=== PATIENT | female | born 1945 | race Caucasian/White ===

== ENCOUNTER 2019-06-27 13:24 | Inpatient (IN) | payer BC ==
[2019-06-27] VITALS (239 sets, daily range): BP systolic 161–167; BP diastolic 105–117; PULSE 63–75; TEMP 97.3–98.1; O2SAT 82–100
[~2019-06-27] VITALS: Ht 162.6 cm; Wt 103.8 kg
[~2019-06-27 13:24] MED LIST: ASPIRIN 32325 MG/TAB PO; CALCIUM 600 + V1 TA1 PO; EPA/GLA1 SGL PO; FISH OIL CONCEN1 SGL PO; LOFIBRA200 MG PO; MELATONIN1 M1; SINGULAIR 110 MG/TAB PO; TENORMIN100 MG PO; ULTRAM 50MG TAB50 MG PO; Z-BEC1 TAB PO
[2019-06-27 13:53] LABS: BASO % 0.2 % (0.0-2.0); EOS # 0.1 (0.0-0.7); EOS % 0.5 % (0-4.0); GRAN # 7.8 (1.4-6.5); GRAN % 85.5 % (42.2-75.2); HEMATOCRIT 47.3 % (37.0-47.0); HEMOGLOBIN 13.9 g/dl (12.5-16.0); LYMPH # 0.6 (1.2-3.4); LYMPH % 6.8 % (20.0-51.0); MEAN CELL VOLUME 97 fl (80.0-100.0); MEAN CORPUSCULAR HEMOGLOBIN 29 pg (27.0-31.0); MEAN CORPUSCULAR HGB CONC 29 g/dl (33.0-37.0); MONO # 0.6 (0.1-0.6); MONO % 6.3 % (1.7-9.3); PLATELET COUNT 337 K/mm3 (130-400); RED BLOOD COUNT 4.87 M/mm3 (4.10-5.30); REDCELL DISTRIBUTION WIDTH-CV 15.4 % (11.5-14.5)
[2019-06-27] MEDS ORDERED: CARDIZEM CD 30300 MG PO (13:57)
[2019-06-27] MEDS ORDERED: FERROUSAL325 MG PO (13:58)
[2019-06-27] MEDS ORDERED: GLUCOSAMINE & C1 TAB PO (13:59)
[2019-06-27] MEDS ORDERED: XARELTO20 MG PO (14:01)
[2019-06-27] MEDS ORDERED: GLUCOPHAGE500 MG/TAB PO (14:02)
[2019-06-27 14:06] LABS: ALANINE AMINOTRANSFERASE 33 U/L (9-52); ALBUMIN 4.3 gm/dL (3.5-5.0); ALKALINE PHOSPHATASE 62 U/L (50-136); ANION GAP 9 mmol/L (7-16); AST,SGOT 36 U/L (15-37); BILIRUBIN,TOTAL 0.8 mg/dL (0.0-1.0); BLOOD UREA NITROGEN 31 mg/dL (7-17); CARBON DIOXIDE 35 mmol/L (22-30); CHLORIDE 101 mmol/L (98-107); CREATINE KINASE 37 U/L (30-135); CREATININE, serum 0.57 (0.52-1.25); GLUCOSE 120 mg/dL (74-106); POTASSIUM 3.5 mmol/L (3.4-5.0); SODIUM 145 mmol/L (137-145); TOTAL PROTEIN 7.2 gm/dL (6.4-8.2)
[2019-06-27 14:22] LABS: TROPONIN-I < 0.012 ng/mL (0.000-0.035)
[2019-06-27 16:47] LABS: ARTERIAL BLD GAS O2 SATURATION 91.3 % (92-100); ARTERIAL BLD GAS TCO2 CT 38.3; ARTERIAL BLOOD GAS BASE EXCESS 8.2 (-2-2); ARTERIAL BLOOD GAS HCO3 36.3 meq/L (22-26); ARTERIAL BLOOD GAS PO2 65.7 mmHg (80-100); ARTERIAL BLOOD GAS pH 7.36 (7.35-7.45)
[2019-06-27 16:49] LABS: ARTERIAL BLOOD GAS PCO2 66.1 mmHg (35-45)
[2019-06-27 18:18] LABS: MAGNESIUM 1.2 mg/dL (1.6-2.3)
[2019-06-27 18:49] LABS: TSH w REFLEX 1.21 uIU/mL (0.465-4.680)
--- NOTE | 2019-06-27 20:00 | NUR ---
PATIENT DENIES PAIN, "I'M JUST TIRED" LABORED BREATHING, SOCIALABLE SMILING
[2019-06-27 22:56] LABS: ARTERIAL BLD GAS O2 SATURATION 97.4 % (92-100); ARTERIAL BLOOD GAS BASE EXCESS 10.4 (-2-2); ARTERIAL BLOOD GAS HCO3 38.8 meq/L (22-26); ARTERIAL BLOOD GAS PCO2 70.1 mmHg (35-45); ARTERIAL BLOOD GAS PO2 111.8 mmHg (80-100); ARTERIAL BLOOD GAS pH 7.36 (7.35-7.45)
[2019-06-28] VITALS (864 sets, daily range): BP systolic 110–157; BP diastolic 70–118; PULSE 60–90; TEMP 98.1–98.8; O2SAT 74–100
--- NOTE | 2019-06-28 01:40 | NUR ---
made changes to bipap settings per last abg results at 0. changes were made from 18/8, 20 and 50% to 20/5, 24, and 45% pt was nikunj changed settings well. no distress noted at this time. will recheck abg in am to ensure settings are changing pts co2. will continue to monitor and assess pt.
[2019-06-28 05:33] LABS: ARTERIAL BLD GAS O2 SATURATION 95.8 % (92-100); ARTERIAL BLD GAS TCO2 CT 42.3; ARTERIAL BLOOD GAS BASE EXCESS 11.9 (-2-2); ARTERIAL BLOOD GAS HCO3 40.2 meq/L (22-26); ARTERIAL BLOOD GAS PCO2 70.6 mmHg (35-45); ARTERIAL BLOOD GAS PO2 84.8 mmHg (80-100); ARTERIAL BLOOD GAS pH 7.37 (7.35-7.45)
[2019-06-28 05:37] LABS: BASO % 0.5 % (0.0-2.0); EOS # 0.2 (0.0-0.7); EOS % 2.3 % (0-4.0); GRAN # 5.9 (1.4-6.5); HEMATOCRIT 44.1 % (37.0-47.0); HEMOGLOBIN 12.9 g/dl (12.5-16.0); LYMPH # 0.9 (1.2-3.4); LYMPH % 11.1 % (20.0-51.0); MEAN CELL VOLUME 98 fl (80.0-100.0); MEAN CORPUSCULAR HEMOGLOBIN 29 pg (27.0-31.0); MEAN CORPUSCULAR HGB CONC 29 g/dl (33.0-37.0); MEAN PLATELET VOLUME 10.2 fl (7.4-10.4); MONO # 0.7 (0.1-0.6); MONO % 8.7 % (1.7-9.3); PLATELET COUNT 296 K/mm3 (130-400); REDCELL DISTRIBUTION WIDTH-CV 15.2 % (11.5-14.5)
[2019-06-28 05:50] LABS: ANION GAP 8 mmol/L (7-16); BLOOD UREA NITROGEN 26 mg/dL (7-17); CALCIUM 8.6 mg/dL (8.4-10.2); CARBON DIOXIDE 36 mmol/L (22-30); CHLORIDE 98 mmol/L (98-107); CHOLESTEROL 126 mg/dL (120-200); CHOLESTEROL RISK RATIO 3.9; CREATININE, serum 0.54 (0.52-1.25); GLUCOSE 95 mg/dL (74-106); HDL CHOLESTEROL 32 mg/dL; LDL CHOLESTEROL 61 mg/dL; MAGNESIUM 1.6 mg/dL (1.6-2.3); POTASSIUM 3.5 mmol/L (3.4-5.0); SODIUM 142 mmol/L (137-145); TRIGLYCERIDE 165 mg/dL
[2019-06-28 06:04] LABS: TROPONIN-I < 0.012 ng/mL (0.000-0.035)
--- NOTE | 2019-06-28 09:03 | NUR ---
Pt back to bed for ECHO. SpO2 between 88-90% after sitting in chair for about an hour, SpO2 had been >93% prior to this while eating breakfast on 6L via NC. Pt now on BiPap tolerating well, Patience,RT notified at 0855.
--- NOTE | 2019-06-28 12:06 | NUR ---
Flight Surveyor offered prayer and support with patient.
--- NOTE | 2019-06-28 13:53 | NUR ---
TAYLORG DRAWN AND RAN FOR RESULTS 06/27/19 @1676. LATE RESULTS ENTRY.
--- NOTE | 2019-06-28 16:01 | NUR ---
Plan to return home with in [facility] . SW met with patient about DC. Patient reports her PCP is Dr. Friedman, gets RX from [facility] on in [place]. Patient denies any DME use. Patient reports spouse will transport home. Denies having a POA. Patient denies any care concerns. SW educated on services and supports. Nothing Follows.
--- NOTE | 2019-06-28 23:00 | NUR ---
PATIENT HAS BBEN BACK IN BED FOR THE LAST HOUR, HAVING TROUBLE WITH BIPAP PRESSURE ON FACE ALSO HAS HEADACHE, TYLENOL ADMINISTERED FOR HEADACHE, RT IN TO HELP PATIENT WITH BIPAP
[2019-06-29] VITALS (755 sets, daily range): BP systolic 96–153; BP diastolic 56–107; PULSE 56–110; TEMP 98–98.8; O2SAT 78–100
--- NOTE | 2019-06-29 00:44 | NUR ---
PATIENT STILL HAVING DIFFICULTI WITH BIPAP, CHANGED TO AIRVO, FOR COMFORT, AND REST,
--- NOTE | 2019-06-29 02:10 | NUR ---
PATIENT CAN'T SLEEP, SITS WITH FEET HANGING OVER SIDE OF BED. sHE STATES " THIS IS MY NORMAL I STAY AWAKE" PATIENT TALKS ABOUT CONCERN OVER THE NEW DIAGNOSES OF CHF AND HOW THIS EVENT WILL EFFECT HER LIFE, AFTER TALK PATIENT USES RESTROOM, WITH 1 STAFF MEMBER CLOSE BY. PATIENT BACK TO BED AT 4 AM,
[2019-06-29 05:38] LABS: BASO % 0.2 % (0.0-2.0); EOS # 0.2 (0.0-0.7); GRAN # 6.9 (1.4-6.5); GRAN % 80.8 % (42.2-75.2); HEMATOCRIT 42.3 % (37.0-47.0); HEMOGLOBIN 12.6 g/dl (12.5-16.0); LYMPH # 0.7 (1.2-3.4); LYMPH % 8.1 % (20.0-51.0); MEAN CELL VOLUME 96 fl (80.0-100.0); MEAN CORPUSCULAR HEMOGLOBIN 29 pg (27.0-31.0); MEAN CORPUSCULAR HGB CONC 30 g/dl (33.0-37.0); MEAN PLATELET VOLUME 10.1 fl (7.4-10.4); MONO # 0.7 (0.1-0.6); MONO % 8.4 % (1.7-9.3); PLATELET COUNT 274 K/mm3 (130-400); RED BLOOD COUNT 4.41 M/mm3 (4.10-5.30); REDCELL DISTRIBUTION WIDTH-CV 14.6 % (11.5-14.5)
[2019-06-29 05:52] LABS: ALBUMIN 3.5 gm/dL (3.5-5.0); BILIRUBIN,TOTAL 0.9 mg/dL (0.0-1.0); CALCIUM 8.1 mg/dL (8.4-10.2); CREATININE, serum 0.52 (0.52-1.25); MAGNESIUM 1.5 mg/dL (1.6-2.3); POTASSIUM 3.5 mmol/L (3.4-5.0); TOTAL PROTEIN 6.1 gm/dL (6.4-8.2)
--- NOTE | 2019-06-29 07:00 | NUR ---
Pt sitting on edge of bed with arms on bedside tray upon arrival. Pt AAOx4, denies pain, states no shortness of breath. Pt states she refused to wear the BiPap machine last night "because it feels like I am being water-boarded with air". Pt returned to bed in mid-arenas's "so I can try and get some sleep, Im tired" refusing BiPap. Call light in reach
[2019-06-29 12:50] LABS: HEMATOCRIT 44.6 % (37.0-47.0); HEMOGLOBIN 13.4 g/dl (12.5-16.0); MEAN CELL VOLUME 96 fl (80.0-100.0); MEAN CORPUSCULAR HEMOGLOBIN 29 pg (27.0-31.0); MEAN CORPUSCULAR HGB CONC 30 g/dl (33.0-37.0); MEAN PLATELET VOLUME 10.1 fl (7.4-10.4); PLATELET COUNT 297 K/mm3 (130-400); RED BLOOD COUNT 4.64 M/mm3 (4.10-5.30); REDCELL DISTRIBUTION WIDTH-CV 14.7 % (11.5-14.5)
[2019-06-29 12:57] LABS: INR 1.3 (0.8-3.0); PROTHROMBIN TIME 14.9 SECONDS (9.7-12.8)
[2019-06-29 13:00] LABS: PARTIAL THROMBOPLASTIN TIME 35.9 SECONDS (26.0-37.0)
[2019-06-29 13:01] LABS: CALCIUM 8.4 mg/dL (8.4-10.2); CREATININE, serum 0.5 (0.52-1.25); POTASSIUM 3.8 mmol/L (3.4-5.0)
--- NOTE | 2019-06-29 14:09 | NUR ---
Patient lives at home alone in her apartment in [place], [place] and plans to return home upon her recovery. 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 As of recent the patient has been relying on [employer] transportation services as she has not been sleeping well and does not want to drive while being sleepy. Patient has recently started using a cane for mobility assistance and stated she will need home oxygen and CPAP machine services upon discharge. progress worker provided the patient with a release of information and options for durable medical equipment/home oxygen uses and plans to think about her options. Patient's primary care physician is Bimal London and she also receives care from Dung Cuello as needed. [facility]'s [facility] and she does not have advance directives for healthcare completed at this time but is interested in completing them so this social sciences chair discussed and provided her with copies of advance directives for healthcare paperwork which she will consider and plans to have completed before her heart catheter procedures which are scheduled for 06/30/19. Patient's brother is supportive yet lives in [place] and his contact information is [phone]. inpatient services director will plan to follow up on healthcare paperwork and durable medical equipment options.
[2019-06-30] VITALS (536 sets, daily range): BP systolic 105–166; BP diastolic 58–113; PULSE 61–86; TEMP 97.5–98.8; O2SAT 47–100
--- NOTE | 2019-06-30 03:56 | NUR ---
PT WAS PLACED ON A 5LPM OM CELINE THAT WELL AND SHE WAS ABLE TO REST FOR A LITTLE BIT. NO DISTRESS AT TIHS MOMENT. WILL CONTONUE TO MONITOR AND ASSESS
[2019-06-30 05:43] LABS: CALCIUM 7.9 mg/dL (8.4-10.2); CREATININE, serum 0.62 (0.52-1.25); MAGNESIUM 1.6 mg/dL (1.6-2.3); POTASSIUM 3.4 mmol/L (3.4-5.0)
--- NOTE | 2019-06-30 12:14 | NUR ---
SEE MERGE DOCUMENTATION FOR MEDICATION ADMINISTRATION TIMES AND INTRA/POST PROCEDURE SEDATION ASSESSMENTS.
[2019-06-30 14:43] LABS: RHEUMATOID FACTOR-SCREEN <15 IU/mL (0-29)
--- NOTE | 2019-06-30 19:39 | NUR ---
Bedside report given to Yumiko HARRIS
[2019-07-01] VITALS (618 sets, daily range): BP systolic 106–145; BP diastolic 62–83; PULSE 54–92; TEMP 97.7–98.9; O2SAT 82–100
--- NOTE | 2019-07-01 01:39 | NUR ---
Patient sitting up at bedside. Complains of achey shoulders and back, requested pain pill-see EMAR. Patient wearing oxymask with no complaints, pleasant and cooperative, uses call light appropriately.
--- NOTE | 2019-07-01 04:13 | NUR ---
Patient requested to sit up in chair. Able to void on commode and transfer to recliner with standby assist only. Patient bradycardic when sleeping. Notified FLOYD Hansen. Patient easily arousable, no complaints when awake, and bradycardia not sustained when awake.
[2019-07-01 06:39] LABS: BASO % 0.1 % (0.0-2.0); EOS # 0.2 (0.0-0.7); EOS % 2.4 % (0-4.0); GRAN # 5.9 (1.4-6.5); GRAN % 77.8 % (42.2-75.2); HEMATOCRIT 42.8 % (37.0-47.0); HEMOGLOBIN 12.7 g/dl (12.5-16.0); LYMPH # 0.7 (1.2-3.4); LYMPH % 9.6 % (20.0-51.0); MEAN CELL VOLUME 98 fl (80.0-100.0); MEAN CORPUSCULAR HEMOGLOBIN 29 pg (27.0-31.0); MEAN CORPUSCULAR HGB CONC 30 g/dl (33.0-37.0); MEAN PLATELET VOLUME 10.5 fl (7.4-10.4); MONO # 0.7 (0.1-0.6); MONO % 9.4 % (1.7-9.3); PLATELET COUNT 308 K/mm3 (130-400); RED BLOOD COUNT 4.37 M/mm3 (4.10-5.30); REDCELL DISTRIBUTION WIDTH-CV 14.6 % (11.5-14.5)
[2019-07-01 06:46] LABS: CALCIUM 8.3 mg/dL (8.4-10.2); CREATININE, serum 0.48 (0.52-1.25); MAGNESIUM 1.8 mg/dL (1.6-2.3)
[2019-07-01 13:50] LABS: ANGIOTENSIN CONVERTING ENZYME 9 U/L (16 - 85)
--- NOTE | 2019-07-01 16:03 | NUR ---
Physical therapy is recommending outpatient physical therapy. GENERAL MACHINIST student presented a list outpatient physical therapy locations. The patient chose [facility] at [address] [place] [address] Road p# fax # [phone] due to their ability to do aqua therapy as well as physical therapy. The patient states she will ride the [employer] to appointments. The patient prefers am or early pm times and only Sunday through Sunday, no weekends. surgical services coordinator will continue to follow.
[2019-07-02] VITALS (663 sets, daily range): BP systolic 118–151; BP diastolic 73–105; PULSE 78–92; TEMP 97.5–98.6; O2SAT 61–100
[2019-07-02 05:51] LABS: ARTERIAL BLD GAS O2 SATURATION 94.8 % (92-100); ARTERIAL BLD GAS TCO2 CT 35.4; ARTERIAL BLOOD GAS BASE EXCESS 7.7 (-2-2); ARTERIAL BLOOD GAS HCO3 33.8 meq/L (22-26); ARTERIAL BLOOD GAS PCO2 53.2 mmHg (35-45); ARTERIAL BLOOD GAS PO2 70.2 mmHg (80-100); ARTERIAL BLOOD GAS pH 7.42 (7.35-7.45)
[2019-07-02 06:46] LABS: CALCIUM 8.9 mg/dL (8.4-10.2); CREATININE, serum 0.48 (0.52-1.25); POTASSIUM 3.9 mmol/L (3.4-5.0)
--- NOTE | 2019-07-02 07:00 | NUR ---
BEDSIDE REPORT RECEIVED FROM KIMBERLY ALMODOVAR. PATIENT SITTING UP ON SIDE OF BED, TIRED-APPEARING. BREAKFAST ARRIVES, SHE STARTS EATING.
--- NOTE | 2019-07-02 08:17 | NUR ---
PATIENT WAS ASSISTED BACK TO BED. SHE STATES THAT SHE DIDN'T SLEEP VERY MUCH AT ALL AND WOULD LIKE TO GET SOME REST. AFTER FALLING ASLEEP, SHE DESATS TWICE DOWN TO 80%. UPON ASSESSMENT, PATIENT IS APNEIC. PATIENT IS WOKEN UP AND OFFERED BIPAP. SHE AGREES. RT CALLED TO PLACE PATIENT ON BIPAP
--- NOTE | 2019-07-02 10:00 | NUR ---
PATIENT UP WALKING IN FONG WITH THERAPY. SHE IS NOT WEARING OXYGEN AT THIS TIME. SHE AMBULATES IN THE FONG AND BACK TO THE ROOM. SPO2 CHECK UPON RETURN TO ROOM IS 86%. PATIENT PLACED BACK ON O2 AT 2L/MIN.
[2019-07-02 13:47] LABS: ANA SCREEN with REFLEX Positive (Negative)
--- NOTE | 2019-07-02 13:47 | NUR ---
Physical therapy is recommending [facility]. CONSULAR OFFICER student present Medicare.gov's list of post acute rehab facilities in the patient's geographical area. The first choice is [facility], second choice [facility] in [place]. Referrals faxed. [facility] reports they do not have bed availablity. The patient was open to sending a referral to [facility]. CONSULAR OFFICER student contacted [facility] Director. Awaiting responses. Cuba from AV reports the patient only has [facility] and they may not pay for a mcc stay and maybe private pay. Cuba states he will contact of [facility] then update CONSULAR OFFICER student. The patient reports she cannot afford a private pay stay. CONSULAR OFFICER student contacted Anne-Marie Harris, with finance. Anne-Marie advised that the patient call Medicare . The patient called and the reimbursement representative will contact the patient this day at 1600. rehabilitation services coordinator will continue to follow.
--- NOTE | 2019-07-02 14:50 | NUR ---
REPORT GIVEN TO KIMBERLY MEREDITH. PATIENT CURRENTLY AWAKE, RESTING IN ROOM WITH NO COMPLAINTS. MEDICAL ORDERS IN COMPUTER. AWAITING ROOM ASSIGNMENT FOR MEDICAL OR SURGICAL FLOOR.
--- NOTE | 2019-07-02 17:00 | NUR ---
REPORT CALLED TO KIMBERLY COLUNGA. PATIENT WILL GO TO ROOM 319
--- NOTE | 2019-07-02 19:27 | NUR ---
Patient is alert and oriented. Patient is independent. Currently sitting on the chair. Patient denies any pain at this time. Patient was transferred from ICU to medical floor this evening.
--- NOTE | 2019-07-02 20:00 | NUR ---
Recieved report from KIMBERLY Warren. Assessment complete. Alert and oriented. Denies any pain or discomfort at this time. LH INT intact, flushed, dressing CDI. Meds administered. Tele monitor in place, leads checked. Bruising observed to right radial, no redness or swelling, pulses palpable. Rt femoral dressing removed, no redness,swelling or drainage, denies pain. On 2LO2NC,denies SOB. requested for a shower, needs met. Call light within reach.
--- NOTE | 2019-07-03 00:22 | NUR ---
Pt up in recliner chair with bipap on. Call light within reach.
--- NOTE | 2019-07-03 01:02 | NUR ---
CHANGED PT MASK TO MEDIUM AND ADJUSTED TO PROPER FIT TO WEAR WITH VISION SET TO CPAP. PT WAS CELINE VERY WELL WITH USING CPAP. NO DISTRESS WAS NOTED AT THIS TIME
[2019-07-03 01:06] LABS: C-ANCA 9 U/mL (0-99)
--- NOTE | 2019-07-03 02:42 | NUR ---
Pt is off bipap, laying in bed with 2LO2NC. Call light within reach.
[2019-07-03 03:29] VITALS: BP 133/95; PULSE 95; TEMP 97.8
--- NOTE | 2019-07-03 03:36 | NUR ---
Pt awake sitting on side of bed watching TV. C/O muscle aches to back, neck, shoulders. PRN Tylenol administered as requested. Call light within reach.
[2019-07-03 05:55] LABS: BASO % 0.4 % (0.0-2.0); EOS # 0.2 (0.0-0.7); EOS % 2.7 % (0-4.0); GRAN # 5.9 (1.4-6.5); GRAN % 76.1 % (42.2-75.2); HEMATOCRIT 46.7 % (37.0-47.0); HEMOGLOBIN 13.8 g/dl (12.5-16.0); LYMPH # 0.8 (1.2-3.4); LYMPH % 10.2 % (20.0-51.0); MEAN CELL VOLUME 96 fl (80.0-100.0); MEAN CORPUSCULAR HEMOGLOBIN 29 pg (27.0-31.0); MEAN CORPUSCULAR HGB CONC 30 g/dl (33.0-37.0); MEAN PLATELET VOLUME 10.5 fl (7.4-10.4); MONO # 0.8 (0.1-0.6); PLATELET COUNT 312 K/mm3 (130-400); RED BLOOD COUNT 4.85 M/mm3 (4.10-5.30); REDCELL DISTRIBUTION WIDTH-CV 14.6 % (11.5-14.5)
[2019-07-03 06:13] LABS: CALCIUM 9.5 mg/dL (8.4-10.2); CREATININE, serum 0.58 (0.52-1.25)
--- NOTE | 2019-07-03 06:53 | NUR ---
Report given to KIMBERLY Carrera and KIMBERLY Santiago.
[2019-07-03 07:36] VITALS: BP 145/86; PULSE 88; TEMP 97.6
--- NOTE | 2019-07-03 09:33 | NUR ---
RECIEVED REPORT FROM WHEAT COMBINE DRIVER AND PATIENT WAS SITTING ON THE EDGE OF THE BED. PATIENT IS NOW RESTING IN HER BED AFTER EATING BREAKFAST. CARDIAC CATH SITES LOOK GREAT WITH NO HEMATOMAS NOTED BUT SOME BRUSING IS. PATIENT DOES HAVE SOME LOWER BILATERAL LEG EDEMA THAT RESOLVES REALLY QUICKLY. PATIENT IS ON 2L OF O2. DENIES ANY SHORTNESS OF BREATH, DIZZINESS, NAUSEA, OR VOMITING AT THIS TIME. PATIENT HAS CALL LIGHT WITHIN REACH AND CALLS IF SHE NEEDS ANYTHING.
--- NOTE | 2019-07-03 11:29 | NUR ---
First visit from the solutions manager. prayed with patient. No other needs right now.
[2019-07-03 12:01] VITALS: BP 137/99; PULSE 100; TEMP 98.8
--- NOTE | 2019-07-03 14:04 | NUR ---
PATIENT IS SITTING UP ON THE EDGE OF THE BED JUST FOR A NEW POSITION. SHE IS DENYING ANY NEEDS AT THIS TIME. FRESH WATER WAS GIVEN TO THE PATIENT. SHE HAD A TRIAL RUN OF WALKING WITHOUT OXYGEN THIS MORNING AND SHE DESATED TO THE 80'S WHEN THAT OCCURED. PATIENT DOES REQUIRE FULLTIME OXYGEN.
--- NOTE | 2019-07-03 14:53 | NUR ---
ANDRY met with the patient to review discharge plan and to update on the status of referrals to [facility] and [facility]. The patient reports that she wants to return back home now. She states that she wants to keep some independence. ANDRY discussed home health vs outpatient PT/OT. The patient would like to pursue with outpatient PT/OT. ANDRY discussed the different therapy centers. The patient chose [facility] on [facility]. The patient reports that she utilizes the [employer] bus and has their demand response service, where she can call them a day in advance and schedule a ride. ANDRY to secure the patient outpatient therapy appointments at [facility] on [facility].
[2019-07-03 15:51] VITALS: BP 136/82; PULSE 82; TEMP 98.1
--- NOTE | 2019-07-03 17:16 | NUR ---
PATIENT HAS HAD A PRETTY GOOD DAY. SHE WORKED WITH PHYSICAL THERAPY. SHE HAS NOT REQUIRED ANY INSULIN AT ALL FOR ME TODAY. SHE IS INDEPENDENT IN HER ROOM AND CALLS IF SHE NEEDS ANYTHING. REQUESTED SOME TYLENOL EARLIER FOR SOME MUSCLE PAIN. SHE CALLS IF SHE NEEDS ANYTHING. WILL REPORT TO LOGISTICS MANAGER UPON THEIR ARRIVAL
[2019-07-03 19:30] VITALS: BP 133/89; PULSE 102; TEMP 97.7
--- NOTE | 2019-07-03 21:15 | NUR ---
Made pt comfortable for bed. RT placed pt on bipap. Call light within reach.
--- NOTE | 2019-07-03 21:46 | NUR ---
Recieved report KIMBERLY Santiago and KIMBERLY Carrera. Assessment complete. Alert and oriented. Pt sitting on side of bed watching TV. Denies any pain or discomfort at this time. INT to LH intact, flushed, dressing CDI. Tele monitor in place, leads checked. On 2LO2NC, denies SOB. Meds administered. Needs met. Call light within reach.
--- NOTE | 2019-07-03 22:41 | NUR ---
Pt requested to come off bipap, states its uncomfortable. Pt placed on 2LO2NC. Will try again later tonight to place pt back on bipap. pt verbalized understanding. Call light within reach.
[2019-07-03 23:59] VITALS: BP 146/72; PULSE 51; TEMP 97.6
--- NOTE | 2019-07-04 00:01 | NUR ---
Pt sitting up in recliner chair. VSS. Needs met. Call light within reach.
--- NOTE | 2019-07-04 01:34 | NUR ---
Pt c/o muscle aches. PRN tylenol administered as requested. Needs met. Notified RT to place bipap back on pt. Call light within reach.
--- NOTE | 2019-07-04 02:12 | NUR ---
RT place pt back on bipap. States she has a hard time falling asleep. Made pt comfortable, heat pad provided. Needs met. Call light within reach.
[2019-07-04 04:18] VITALS: BP 141/93; PULSE 86; TEMP 97.5
--- NOTE | 2019-07-04 04:23 | NUR ---
Pt requested hot tea, met. Pt off bipap. Pt awake sitting up in bed watching tv. Call light within reach.
[2019-07-04 05:52] LABS: BASO % 0.5 % (0.0-2.0); EOS # 0.3 (0.0-0.7); EOS % 3.7 % (0-4.0); GRAN # 5.4 (1.4-6.5); GRAN % 72.9 % (42.2-75.2); HEMATOCRIT 46.6 % (37.0-47.0); HEMOGLOBIN 13.9 g/dl (12.5-16.0); LYMPH # 0.9 (1.2-3.4); LYMPH % 11.9 % (20.0-51.0); MEAN CELL VOLUME 96 fl (80.0-100.0); MEAN CORPUSCULAR HEMOGLOBIN 29 pg (27.0-31.0); MEAN CORPUSCULAR HGB CONC 30 g/dl (33.0-37.0); MEAN PLATELET VOLUME 10.9 fl (7.4-10.4); MONO # 0.7 (0.1-0.6); PLATELET COUNT 328 K/mm3 (130-400); RED BLOOD COUNT 4.85 M/mm3 (4.10-5.30); REDCELL DISTRIBUTION WIDTH-CV 14.5 % (11.5-14.5)
[2019-07-04 06:04] LABS: CALCIUM 9.7 mg/dL (8.4-10.2); CREATININE, serum 0.63 (0.52-1.25); POTASSIUM 3.6 mmol/L (3.4-5.0)
--- NOTE | 2019-07-04 07:05 | NUR ---
Report given to KIMBERLY Solis.
[2019-07-04 07:07] VITALS: BP 130/92; PULSE 86; TEMP 97
--- NOTE | 2019-07-04 07:57 | NUR ---
RA SPO2 A SLEEP 80%.. PLACE ON 2 LPM MD 91$
[2019-07-04] MEDS ORDERED: ALDACTONE 25MG25 M1 PO (10:03)
[2019-07-04] MEDS ORDERED: LASIX 40MG TABL40 MG PO (10:03)
[2019-07-04] MEDS ORDERED: DESYREL 50MG50 MG PO (10:10)
[2019-07-04 11:56] VITALS: BP 136/88; PULSE 94; TEMP 97.9
--- NOTE | 2019-07-04 14:49 | NUR ---
The patient is to discharge back home today, 07/04. ANDRY followed up with the patient to review discharge plan. The patient would still like to return home. She states that she would prefer outpatient PT/OT [facility] on [facility] now, due to them having the aquatic pool. ANDRY contacted Sivan at [facility] on [facility] and secured the patient an outpatient PT appointment on 07/13 at 1345 and a outpatient OT appointment on 07/13 at 1500. ANDRY notified the unit reactor operator of the appointments and faxed the patient's discharge orders to [facility] on [facility]. An execise oximetry was ordered and the patient did qualify for 2 liters of oxygen. ANDRY met with the patient and presented and explained the Patient Choice Form for DME. The patient chose [facility]. Patient Choice Form signed by the patient and she was provided a copy. ANDRY contacted and faxed the patient's oxygen order to Dotty at [facility]. SW awaiting approval and delivery of oxygen.
--- NOTE | 2019-07-04 15:52 | NUR ---
Miller, at [facility], reports that the patient has $1600 left on her deductible and would have to private pay $350 a month until she met that deductible. He states that the patient would then be responsible for 20% until her out of pocket was met. He states that they would need to collect payment upon delivery of oxygen. ANDRY informed the patient. The patient would like to send the oxygen order to [place] [facility], to see if there are any changes with the finances. ANDRY contacted and faxed the oxygen order to Mariaelena at [facility]. SW awaiting their approval and delivery.
--- NOTE | 2019-07-04 16:16 | NUR ---
PT HAD UNEVENTFUL DAY. CURRENTLY AWAITING DISCHARGE. S/S WORKING ON GETTING PT SET UP FOR HOME O2 AT THIS TIME.
[2019-07-04 16:31] VITALS: BP 128/76; PULSE 79; TEMP 98.8
--- NOTE | 2019-07-04 16:59 | NUR ---
O2 COMPANY DELIVIERED O2 TO PT ROOM. PT CALLING FRIEND FOR A RIDE. THIS NURSE REMOVED IV NO ISSUES NOTED. TELE REMOVED. INFORMED PT TO CALL US WHEN SHE IS ABOUT READY TO GO HOME AND I WILL BEING IN HER DISCHARGE PAPERWORK AND THAT SHE WAS OK TO GET DRESSED IF SHE WANTED.
--- NOTE | 2019-07-04 17:00 | NUR ---
[place] [facility] delivered the patient's oxygen to her room. ANDRY updated Miller at [facility]. The patient is to discharge back home today, 07/04. No additional needs at this time.
--- NOTE | 2019-07-04 17:43 | NUR ---
DISCHARGE EDUCATION WENT OVER WITH PT. SIGNATURES OBTAINED. PT BELONGINGS GATHERED. PT STATED THAT SHE WILL LET US KNOW WHEN HER RIDE IS HERE TO ESCORT HER BRIANA.
--- NOTE | 2019-07-04 18:34 | NUR ---
PT RIDE ARRIVED TO FACILITY. ROD BUSTER TRANSPORTING PT BRIANA VIA WC.
== END 2019-07-04 18:36 | disposition home health service (06) | DRG 286 ==
LOC: COL.ER 13:24 → MEDICAL 14:03 → ICU 14:31 → MEDICAL 07-02 17:33
PROVIDERS: Emergency Medicine; Internal Medicine Cardiovascular Disease; Internal Medicine Pulmonary Disease; Nurse Practitioner Family; Physician Assistant; Student in an Organized Health Care Education/Training Program; ADMIT Internal Medicine
PROC: 5A09557 Assistance with Respiratory Ventilation, Greater than 96 Consecutive Hours, Continuous Positive Airway Pressure (ICD-10-PCS; 2019-06-27)
PROC: B2111ZZ Fluoroscopy of Multiple Coronary Arteries using Low Osmolar Contrast (ICD-10-PCS; principal; 2019-06-30)
PROC: B2141ZZ Fluoroscopy of Right Heart using Low Osmolar Contrast (ICD-10-PCS; 2019-06-30)
PROC: 4A023N8 Measurement of Cardiac Sampling and Pressure, Bilateral, Percutaneous Approach (ICD-10-PCS; 2019-06-30)
DX: I27.20 Pulmonary hypertension, unspecified (principal); J96.21 Acute and chronic respiratory failure with hypoxia; J96.22 Acute and chronic respiratory failure with hypercapnia; I48.20 Chronic atrial fibrillation, unspecified; I50.9 Heart failure, unspecified; G47.33 Obstructive sleep apnea (adult) (pediatric); E78.5 Hyperlipidemia, unspecified; M16.0 Bilateral primary osteoarthritis of hip; Z96.643 Presence of artificial hip joint, bilateral; E87.6 Hypokalemia; E87.70 Fluid overload, unspecified; E66.9 Obesity, unspecified; E83.42 Hypomagnesemia; I08.0 Rheumatic disorders of both mitral and aortic valves; I48.91 Unspecified atrial fibrillation; Z86.711 Personal history of pulmonary embolism; Z86.718 Personal history of other venous thrombosis and embolism; Z68.30 Body mass index [BMI] 30.0-30.9, adult
CPT/HCPCS: 99222-AI; 99232-AI; 99233-AI; 99239; C1769; C1894; J1644; J1815; J1940; J2060; J3010; J3475; J3480; Q9967

== ENCOUNTER 2019-07-23 10:04 | Outpatient (RCR) | payer BC ==
[~2019-07-23 10:04] MED LIST changes: +ALDACTONE 25MG25 M1 PO; +CARDIZEM CD 30300 MG PO; +DESYREL 50MG50 MG PO; +FERROUSAL325 MG PO; +GLUCOPHAGE500 MG/TAB PO; +GLUCOSAMINE & C1 TAB PO; +LASIX 40MG TABL40 MG PO; +XARELTO20 MG PO
== END 2019-10-21 | disposition home or self-care (01) ==
LOC: WSPT
DX: I27.20 Pulmonary hypertension, unspecified (principal); I50.9 Heart failure, unspecified; R09.02 Hypoxemia

== ENCOUNTER 2021-11-19 20:06 | Inpatient (IN) | payer MEDICARE ==
[~2021-11-19] VITALS: Ht 162.6 cm; Wt 107.6 kg
[~2021-11-19 20:06] MED LIST changes: +NORCO 325 MG-51 TAB PO
[2021-11-19 21:45] LABS: ALBUMIN 2.5 gm/dL (3.4-4.8); BILIRUBIN,TOTAL 0.9 mg/dL (0.2-1.2); C-REACTIVE PROTEIN 19.33 mg/dL (0.00-0.50); CALCIUM 9.3 mg/dL (8.4-10.2); CREATININE, serum 0.89 mg/dL (0.57-1.11); POTASSIUM 3.8 mmol/L (3.5-4.5); TOTAL PROTEIN 7.3 gm/dL (6.2-8.1)
[2021-11-19 21:54] LABS: TROPONIN-I 0.141 ng/mL (0.00-0.033)
[2021-11-19 22:06] LABS: BASO % 0.2 % (0.0-2.0); EOS % 0.3 % (0.0-4.0); GRAN # 11.4 K/mm3 (1.4-6.5); GRAN % 85.6 % (42.2-75.2); HEMATOCRIT 42.3 % (37.0-47.0); HEMOGLOBIN 12.9 g/dl (12.5-16.0); LYMPH # 0.6 K/mm3 (1.2-3.4); LYMPH % 4.4 % (20.0-51.0); MEAN CELL VOLUME 96 fl (80.0-100.0); MEAN CORPUSCULAR HEMOGLOBIN 29 pg (27-31); MEAN CORPUSCULAR HGB CONC 31 g/dl (33.0-37.0); MEAN PLATELET VOLUME 10.5 fl (7.4-10.4); MONO # 1.1 K/mm3 (0.1-0.6); MONO % 8.5 % (1.7-9.3); PLATELET COUNT 338 K/mm3 (130-400); REDCELL DISTRIBUTION WIDTH-CV 13.2 % (11.5-14.5)
[2021-11-19 22:29] LABS: INR 1.2 (0.8-3.0); PROTHROMBIN TIME 14.2 SECONDS (9.7-12.8)
[2021-11-19 22:32] LABS: PARTIAL THROMBOPLASTIN TIME 28.7 SECONDS (26.0-37.0)
[2021-11-19] MEDS ORDERED: CURCUPLEX-95500 MG PO (22:44)
[2021-11-19] MEDS ORDERED: MULTI VITAMINS1 TAB PO (22:45)
[2021-11-19] MEDS ORDERED: OMEGA-3 1000 MG1 CAP PO (22:46)
[2021-11-19] MEDS ORDERED: COUMADIN 5MG5 MG/TAB PO (22:50)
[2021-11-19 23:24] LABS: COLLECTION METHOD CLEAN CATCH
[2021-11-19 23:30] LABS: MUCOUS Present (NOT PRESENT); PH 6 (5-8); SQUAMOUS EPITHELIAL 0-2 /hpf (0-10); URINE APPEARANCE Clear (CLEAR/HAZY); URINE BACTERIA None Seen /hpf (NONE SEEN); URINE BLOOD Negative (NEGATIVE); URINE COLOR Yellow (YELLOW); URINE GLUCOSE Negative (NEGATIVE); URINE KETONE Negative (NEGATIVE); URINE NITRATE Negative (NEGATIVE); URINE PROTEIN(semi-quant) 2+ (NEGATIVE); URINE RBC 0-2 /hpf (0-2); URINE UROBILINOGEN >=4.0 (NEGATIVE)
[2021-11-20] VITALS (1077 sets, daily range): BP systolic 96–125; BP diastolic 62–88; PULSE 78–96; TEMP 98.6–99; O2SAT 74–100
--- NOTE | 2021-11-20 00:57 | NUR ---
admitted to medical floor room 357 at 0030. patient on dilt and heparin drip. alert and oriented. all safety measures maintained. will continue to monitor
[2021-11-20 05:32] LABS: BASO % 0.2 % (0.0-2.0); EOS # 0.2 K/mm3 (0.0-0.7); EOS % 1.3 % (0.0-4.0); GRAN # 9.6 K/mm3 (1.4-6.5); GRAN % 78.1 % (42.2-75.2); HEMATOCRIT 39.1 % (37.0-47.0); HEMOGLOBIN 12.1 g/dl (12.5-16.0); LYMPH # 1.2 K/mm3 (1.2-3.4); LYMPH % 9.9 % (20.0-51.0); MEAN CELL VOLUME 95 fl (80.0-100.0); MEAN CORPUSCULAR HEMOGLOBIN 29 pg (27-31); MEAN CORPUSCULAR HGB CONC 31 g/dl (33.0-37.0); MEAN PLATELET VOLUME 10.5 fl (7.4-10.4); MONO # 1.2 K/mm3 (0.1-0.6); MONO % 9.4 % (1.7-9.3); PLATELET COUNT 298 K/mm3 (130-400); RED BLOOD COUNT 4.11 M/mm3 (4.10-5.30); REDCELL DISTRIBUTION WIDTH-CV 13.3 % (11.5-14.5)
[2021-11-20 05:57] LABS: CALCIUM 8.5 mg/dL (8.4-10.2); CREATININE, serum 0.66 mg/dL (0.57-1.11); POTASSIUM 3.7 mmol/L (3.5-4.5)
--- NOTE | 2021-11-20 09:26 | NUR ---
SW met with patient to complete intake. Patient states that she lives alone in [facility]. Next of kin is her brother Christo Baltazar [phone]. Patient provides that she utilizes a walker as well as a cane. Patient provides that she does not utilize HH services at this time, but states she feels that she would benefit from utilizing services. SW provided list of HH agencies and patient will decide. PCP is Dr. Eloise London and pharmacy is [facility]. During intake patient appointed brother as DPOA\HC. Document presented, reviewed, signed, and witnessed by nurse. Original document placed in chart and copies made for patient. Patient states she plans to return to her home upon DC. SW will continue to follow. DC plan: home
--- NOTE | 2021-11-20 12:21 | NUR ---
Warfarin Initial Dosing Pharmacy Note Ordering Provider: Asael Cui MD Indication: VTE/PE Treatment LABS: INR 1.2 Recommendation: Will give Warfarin 7.5 mg x1 tonight, and then plan to decrease dose back to Warfarin 5 mg po qHS. Patient previously therapeutic on Warfarin 5 mg daily. Pharmacy will continue to closely monitor daily INR levels. Home Regimen: 5 mg po qHS (not taking X4 weeks prior to admission)
--- NOTE | 2021-11-20 22:22 | NUR ---
BEDSIDE SHIFT REPORT RECEIVED FROM KIMBERLY MAYER. PT CURRENTLY RESTING IN BED. NO C/O PAIN OR DISCOMFORT AT THIS TIME. SALINE LOCKED. OXYGEN VIA OXYMASK RUNNING AT 4L. VSS, NO ACUTE CHANGES NOTED AT THIS TIME.
--- NOTE | 2021-11-20 22:36 | NUR ---
DISCUSSED WITH PATIENT ABOUT WEARING/USING A CPAP. PT STATED "I DONT KNOW WHAT THOSE ARE" TOLD PATIENT THAT IS A MASK THAT GOES OVER HER FACE AND BEFORE I COULD FINISH THE REST OF MY STATEMENT SHE SAID "NO!"
[2021-11-21] VITALS (998 sets, daily range): BP systolic 98–131; BP diastolic 86–98; PULSE 77–93; TEMP 97.8–99.3; O2SAT 71–100
[2021-11-21 05:54] LABS: CALCIUM 8.4 mg/dL (8.4-10.2); CREATININE, serum 0.72 mg/dL (0.57-1.11); MAGNESIUM 1.6 mg/dL (1.6-2.6); POTASSIUM 3.9 mmol/L (3.5-4.5)
--- NOTE | 2021-11-21 06:30 | NUR ---
BEDSIDE REPORT RECEIVED FROM KIMBERLY EDDY. PT IS RESTING IN BED AT THIS TIME. NO MEDICATIONS INFUSING. OXYGEN ON AT 4L PER OXY MASK. ASSISTED PT TO USE BEDPAN. PT URINATED 500ML. PT REPOSITIONED TO LEFT SIDE. CALL LIGHT IN REACH, PT WILL UTILIZE FOR NEEDS.
[2021-11-21 07:56] LABS: INR 1.2 (0.8-3.0); PROTHROMBIN TIME 13.8 SECONDS (9.7-12.8)
--- NOTE | 2021-11-21 12:54 | NUR ---
SW attempted to speak with the patient about therapy's recommendation of post acute rehab. Patient briefly rouses shanking her head "yes". SW informed the patient that additional referrals will be sent to the 3 local facilities as well. OT enters into the room to work with the patient.
[2021-11-22] VITALS (1406 sets, daily range): BP systolic 91–151; BP diastolic 23–111; PULSE 80–110; TEMP 97.6–98.4; O2SAT 67–100
[2021-11-22 06:15] LABS: INR 1.4 (0.8-3.0); PROTHROMBIN TIME 15.8 SECONDS (9.7-12.8)
--- NOTE | 2021-11-22 08:00 | NUR ---
SHIFT REPORT RECEIVED. LINEN CHANGED, SKIN ASSESSED ON BUTTOX. LT AND RT MEDAL BUTTOX WITH WHEEPING NON-BLANCHABLE SITES, THESE SITES NOT LOCATED ON ORESTES PROMINENCE AREAS. AREAS CLEANED AND BARRIER CREAM APPLIED. PT WITH URINARY URGENCY, PURWICK APPLIED TO HELP REDUCE EXPOSURE TO MOISTURE.
[2021-11-22 08:22] LABS: HEMATOCRIT 40.5 % (37.0-47.0); HEMOGLOBIN 12.2 g/dl (12.5-16.0); MEAN CELL VOLUME 97 fl (80.0-100.0); MEAN CORPUSCULAR HEMOGLOBIN 29 pg (27-31); MEAN CORPUSCULAR HGB CONC 30 g/dl (33.0-37.0); MEAN PLATELET VOLUME 11.4 fl (7.4-10.4); PLATELET COUNT 335 K/mm3 (130-400); RED BLOOD COUNT 4.16 M/mm3 (4.10-5.30); REDCELL DISTRIBUTION WIDTH-CV 12.9 % (11.5-14.5)
[2021-11-22 08:32] LABS: CALCIUM 8.7 mg/dL (8.4-10.2); CREATININE, serum 0.64 mg/dL (0.57-1.11); POTASSIUM 4.2 mmol/L (3.5-4.5)
--- NOTE | 2021-11-22 08:55 | NUR ---
Initial visit; Patient thanked Fashion Supervisor for looking in on her and visiting about her health issues and offering to keep her in Fashion Supervisor's prayers. Patient was also receptive for prayer this morning. Fashion Supervisor will look in on Carol as she recovers.
[2021-11-22 09:05] LABS: BAND 4 % (0-10); EOSINOPHIL 3 % (0-4); LYMPHOCYTE 11 % (20.0-51.0); METAMYELOCYTE 1 % (0-0); NEUTROPHILS 73 % (42.0-75.2); PLATELET ESTIMATE NORMAL (NORMAL)
--- NOTE | 2021-11-22 20:00 | NUR ---
ASSESSMENT COMPLETE AND CHARTED. PATIENT ALERT AND ORIENTATED. DENIES NEEDS. CALL LIGHT IN REACH. PURE WICK IN PLACE.
[2021-11-23] VITALS (61 sets, daily range): BP systolic 113–141; BP diastolic 79–99; PULSE 85–109; TEMP 97.5–98.1; O2SAT 92–99
--- NOTE | 2021-11-23 00:46 | NUR ---
REPORT GIVEN TO KIMBERLY CLARKE
--- NOTE | 2021-11-23 01:04 | NUR ---
PATIENT TRANSFERRED TO MEDICAL FLOOR AT THIS TIME.
--- NOTE | 2021-11-23 04:37 | NUR ---
RESTED THRU THE NIGHT WITHOUT INCIDENT AFTER TRANS FROM ICU. CALL LIGHT WITH REACH. NEEDS ARE MET.
[2021-11-23 07:32] LABS: INR 1.5 (0.8-3.0); PROTHROMBIN TIME 17.1 SECONDS (9.7-12.8)
--- NOTE | 2021-11-23 09:00 | NUR ---
Patient is resting in bed, with breakfast tray. Alert and oriented x 4, VSS, Telemetry in place, irregular 90's. HR increases with activity. Incontinent for BM, states that is new. Bottom is reddened. Mepilex in tht left side, scoriation. Assessment completed, no other needs at this time. Call light within reach.
--- NOTE | 2021-11-23 12:48 | NUR ---
Patient's clinical updates faxed to [facility], [facility] and [facility].
--- NOTE | 2021-11-23 18:20 | NUR ---
Patient has been incontinent for both along the day, multiple changes made. She has eaten with no problem. Telemetry in place, afib 120's. Consent for procedure in chart. Report will be su to kirby RN.
[2021-11-24] VITALS (651 sets, daily range): BP systolic 97–151; BP diastolic 70–118; PULSE 81–113; TEMP 97.8–98.6; O2SAT 73–100
[2021-11-24 05:54] LABS: HEMOGLOBIN 13.1 g/dl (12.5-16.0); MEAN CELL VOLUME 93 fl (80.0-100.0); MEAN CORPUSCULAR HEMOGLOBIN 29 pg (27-31); MEAN CORPUSCULAR HGB CONC 31 g/dl (33.0-37.0); MEAN PLATELET VOLUME 10.6 fl (7.4-10.4); PLATELET COUNT 360 K/mm3 (130-400); RED BLOOD COUNT 4.51 M/mm3 (4.10-5.30); REDCELL DISTRIBUTION WIDTH-CV 12.7 % (11.5-14.5)
[2021-11-24 06:00] LABS: INR 1.3 (0.8-3.0); PROTHROMBIN TIME 14.9 SECONDS (9.7-12.8)
[2021-11-24 06:13] LABS: CALCIUM 9.4 mg/dL (8.4-10.2); CREATININE, serum 0.65 mg/dL (0.57-1.11); POTASSIUM 4.1 mmol/L (3.5-4.5)
[2021-11-24 07:25] LABS: BAND 2 % (0-10); EOSINOPHIL 6 % (0-4); LYMPHOCYTE 13 % (20.0-51.0); METAMYELOCYTE 2 % (0-0); NEUTROPHILS 70 % (42.0-75.2); PLATELET ESTIMATE NORMAL (NORMAL)
--- NOTE | 2021-11-24 10:08 | NUR ---
Carol with [facility] states that they are unable to accept this patient. Cuba with AV states that the patient was fired from her PCP Dr Bansal in July.
--- NOTE | 2021-11-24 10:30 | NUR ---
Cuba at [facility] declined referral. IPR Director Renetta is following.
--- NOTE | 2021-11-24 12:45 | NUR ---
PT ARRIVED VIA STRETCHER WITH LYNDA SOFTWARE ENGINEER BACKEND RN.A&O X4, VSS. 2 KNEE IMMOBILIZERS WERE PLACED TO KEEP PT FROM BENDING THE KNEES AND LIFTING LEGS TO PREVENT MOVEMENT AT THE HIP JOINT WHERE THE PT HAD CATHETER INSERTED. PT WILL WEAR KNEE IMMOBILIZERS Q6HR, AND LAY FLAT Q6HR. CALL LIGHT WITHIN REACH. REORIENTATED TO ICU05.
--- NOTE | 2021-11-24 14:30 | NUR ---
PT STATES " I HAVE NOT SLEPT IN 2 DAYS, I FEEL LIKE IM LAYING ON A HARD BOARD AND I NEED SOMETHING MORE FOR ANXIETY". PT APPEARS TO BE RESTLESS, AND ANXIOUS. DR. HAMPTON NOTIFIED, ORDERS PLACED. SEE MAR
--- NOTE | 2021-11-24 19:10 | NUR ---
Received report from KIMBERLY Roth.
--- NOTE | 2021-11-24 20:00 | NUR ---
Patient resting quietly in bed. She is alert but drowsy; partially oriented at this time. Vitals within normal limits. She is receiving 4L oxygen via oxymask, tolerating well. Right femoral access site is clean, dry, intact, soft, and without hematoma formation. Some bruising to the area noted. [place] box and ice water provided at her request. Bed in lowest position, all alarms on.
[2021-11-25] VITALS (1193 sets, daily range): BP systolic 113–142; BP diastolic 73–97; PULSE 88–117; TEMP 97.8–100.4; O2SAT 61–100
--- NOTE | 2021-11-25 07:00 | NUR ---
Report received from KIMBERLY Mendez. Groin site assessed together. Site tender to touch but clean and soft with no hematoma formation. Patient slightly drowsy but able to answer all orientation quesions appropriately. Asking about breakfast. Called and breakast will be sent a non-select tray. Call light left within reach; will continue to monitor.
[2021-11-25 07:56] LABS: HEMOGLOBIN 13.2 g/dl (12.5-16.0); MEAN CELL VOLUME 94 fl (80.0-100.0); MEAN CORPUSCULAR HEMOGLOBIN 30 pg (27-31); MEAN CORPUSCULAR HGB CONC 31 g/dl (33.0-37.0); PLATELET COUNT 366 K/mm3 (130-400); RED BLOOD COUNT 4.45 M/mm3 (4.10-5.30); REDCELL DISTRIBUTION WIDTH-CV 13.1 % (11.5-14.5)
[2021-11-25 08:00] LABS: INR 1.3 (0.8-3.0); PROTHROMBIN TIME 15.4 SECONDS (9.7-12.8)
[2021-11-25 08:08] LABS: CALCIUM 8.7 mg/dL (8.4-10.2); CREATININE, serum 0.68 mg/dL (0.57-1.11); POTASSIUM 4.1 mmol/L (3.5-4.5)
--- NOTE | 2021-11-25 08:30 | NUR ---
Dr. Cuello at bedside to see patient. Suture removed from groin. Site slightly tender to touch but is clean, dry and intact with no hematoma formation. +2 pedal pulses palpated. States pt can go back upstairs if no complications noted after patient sits upright in bed or in chair.
[2021-11-25 08:32] LABS: BAND 11 % (0-10); EOSINOPHIL 3 % (0-4); LYMPHOCYTE 9 % (20.0-51.0); METAMYELOCYTE 1 % (0-0); NEUTROPHILS 72 % (42.0-75.2)
[2021-11-25 08:33] LABS: HYPOCHROMIA 2+; PLATELET ESTIMATE NORMAL (NORMAL)
[2021-11-25 08:34] LABS: POLYCHROMASIA 1+
--- NOTE | 2021-11-25 10:05 | NUR ---
Requesting to return to bed. Patient appears more fatigued than during earlier assessment, however VS are stable. Assisted back to bed; VS remained stable during transfer but patient was noted to be breathing heavier. Upon return to bed o2 desaturated to mid 80's on 5L nasal cannula. Switched to oxymak at 6L. 02 back up to 92% but intermittently dropping into the 80's then back up to the 90's. RT notified. Will continue to monitor.
--- NOTE | 2021-11-25 10:24 | NUR ---
Follow-up visit; Patient thanked Human Service Worker for coming and offering prayer and God's blessings. Carol appeared to be weak and asked that Human Service Worker get nurse so she could get back into bed. Human Service Worker did so.
--- NOTE | 2021-11-25 10:36 | NUR ---
tar pot worker notified by IPR director that she accepts this patient.
--- NOTE | 2021-11-25 10:45 | NUR ---
Notified hospitalist regarding patient's increasing 02 needs. Received order to consult Dr. London and obtain an ABG; RT notified.
[2021-11-25 10:57] LABS: ARTERIAL BLD GAS TCO2 CT 32.7; ARTERIAL BLOOD GAS BASE EXCESS 5.4 (-2-2); ARTERIAL BLOOD GAS HCO3 31.2 meq/L (22-26); ARTERIAL BLOOD GAS PCO2 50.3 mmHg (35-45); ARTERIAL BLOOD GAS PO2 68.6 mmHg (80-100); ARTERIAL BLOOD GAS pH 7.41 (7.35-7.45)
--- NOTE | 2021-11-25 11:35 | NUR ---
Blood glucose 330 and temp 100.4. Notified hospitalist and will obtain a UA and 2 sets of blood cultures.
[2021-11-25 14:11] LABS: COLLECTION METHOD CLEAN CATCH
[2021-11-25 14:21] LABS: PH 5 (5-8); SQUAMOUS EPITHELIAL 0-2 /hpf (0-10); URINE APPEARANCE Clear (CLEAR/HAZY); URINE BACTERIA None Seen /hpf (NONE SEEN); URINE BLOOD 2+ (NEGATIVE); URINE COLOR Yellow (YELLOW); URINE GLUCOSE Negative (NEGATIVE); URINE KETONE Negative (NEGATIVE); URINE NITRATE Negative (NEGATIVE); URINE PROTEIN(semi-quant) Negative (NEGATIVE); URINE UROBILINOGEN Negative (NEGATIVE)
--- NOTE | 2021-11-25 16:00 | NUR ---
Assisted with repositioning and iván-care and new purwick placed. Patient reports feeling "much better" than this morning. States that she feels much more awake and "alert". Patient does appear more per her baseline and VS have remained stable on 3L nc. Call light left within reach; will continue to monitor.
--- NOTE | 2021-11-25 18:14 | NUR ---
Patient began coughing forcefully while eating dinner and vomited up a portion of her meal. Patient has a strong cough reflex. After vomiting HR noted to be ranging from 130's-110 in A-fib. 02 increased to 4L oxymask and currenlty 94%. Lung sounds auscultated and crackles heard in the bases. Crackles were not noted on the earlier assessment. Hospitalist notified and will obtain a chest xray.
--- NOTE | 2021-11-25 19:45 | NUR ---
Patient resting quietly in bed. She is wearing 4L oxygen via oxymask at this time, tolerating well. All vitals within normal limits. She is alert and oriented and following verbal commmands. She reports mild joint pain but denies needing PRN medication at this time. Patient provided with call light and glasses for reading upon request. No further needs noted.
[2021-11-26] VITALS (978 sets, daily range): BP systolic 109–131; BP diastolic 74–101; PULSE 73–116; TEMP 97.5–99.3; O2SAT 75–100
[2021-11-26 01:40] LABS: ARTERIAL BLD GAS O2 SATURATION 97.1 % (92-100); ARTERIAL BLD GAS TCO2 CT 41.7; ARTERIAL BLOOD GAS BASE EXCESS 12.1 (-2-2); ARTERIAL BLOOD GAS HCO3 39.7 meq/L (22-26); ARTERIAL BLOOD GAS PO2 96.9 mmHg (80-100)
[2021-11-26 01:41] LABS: ARTERIAL BLOOD GAS PCO2 65.6 mmHg (35-45)
--- NOTE | 2021-11-26 01:57 | NUR ---
DR Chavo FRIAS CONTACTED THROUGH [facility] AT THIS TIME. ABG CRITICAL RESULTS READ AND VERIFIED. NO NEW ORDERS AT THIS TIME.
[2021-11-26 06:58] LABS: HEMATOCRIT 40.8 % (37.0-47.0); HEMOGLOBIN 12.4 g/dl (12.5-16.0); MEAN CELL VOLUME 97 fl (80.0-100.0); MEAN CORPUSCULAR HEMOGLOBIN 30 pg (27-31); MEAN CORPUSCULAR HGB CONC 30 g/dl (33.0-37.0); MEAN PLATELET VOLUME 10.1 fl (7.4-10.4); PLATELET COUNT 332 K/mm3 (130-400); RED BLOOD COUNT 4.21 M/mm3 (4.10-5.30); REDCELL DISTRIBUTION WIDTH-CV 13.2 % (11.5-14.5)
[2021-11-26 07:16] LABS: C-REACTIVE PROTEIN 14.88 mg/dL (0.00-0.50); CALCIUM 8.9 mg/dL (8.4-10.2); CREATININE, serum 0.64 mg/dL (0.57-1.11)
[2021-11-26 07:22] LABS: BAND 4 % (0-10); BASOPHIL 1 % (0-2); EOSINOPHIL 2 % (0-4); LYMPHOCYTE 15 % (20.0-51.0); NEUTROPHILS 72 % (42.0-75.2); PLATELET ESTIMATE NORMAL (NORMAL)
--- NOTE | 2021-11-26 07:50 | NUR ---
SHIFT REPORT RECEIVED FROM KIMBERLY TATE. PATIENT IS IN BED WITH EYES CLOSED. CALL LIGHT WITHIN REACH. VSS ASIDE FROM HIGH HR. IV SITES STILL IN PLACE.
--- NOTE | 2021-11-26 10:30 | NUR ---
DR. VILLATORO AND DR. WALTON AT BEDSIDE. DISCUSSED PLAN OF CARE. DR. WALTON WANTING EKG AND TO KEEP PATIENT IN UNIT TO ATTEMPT RATE CONTROL ON AFIB RVR.
--- NOTE | 2021-11-26 11:12 | NUR ---
DR. PAPPAS AT BEDSIDE. DISCUSSED PLAN OF CARE.
--- NOTE | 2021-11-26 14:00 | NUR ---
PATIENT EDUCATED ON MANY ASPECTS OF CARE AND DIAGNOSES. PATIENT VERY SUSCEPTIBLE TO TEACHING REGARDING DIABETES MANAGEMENT, MEDICATION REGIMEN AND POSSIBILITY OF GOING TO AN ASSISTED LIVING FACILITY.
[2021-11-26 18:27] LABS: INR 1.5 (0.8-3.0)
--- NOTE | 2021-11-26 21:56 | NUR ---
BEDSIDE SHIFT REPORT RECEIVED FROM KIMBERLY SESAY. PT CURRENTLY RESTING IN BED. NO C/O PAIN OR DISCOMFORT AT THIS TIME. SALINE LOCKED. VSS. NO ACUTE CHANGES NOTED AT THIS TIME
[2021-11-27] VITALS (646 sets, daily range): BP systolic 99–119; BP diastolic 59–80; PULSE 75–90; TEMP 98.6–98.9; O2SAT 71–100
[2021-11-27 06:37] LABS: INR 1.5 (0.8-3.0); PROTHROMBIN TIME 17.1 SECONDS (9.7-12.8)
[2021-11-27 06:47] LABS: CALCIUM 9.1 mg/dL (8.4-10.2); CREATININE, serum 0.61 mg/dL (0.57-1.11); MAGNESIUM 1.6 mg/dL (1.6-2.6); POTASSIUM 4.1 mmol/L (3.5-4.5)
--- NOTE | 2021-11-27 08:00 | NUR ---
DURING TOILETING, WAS ABLE TO VISUALIZE PT BED SORES, AND WOUND. IT APPEARS TO BE HEALING WELL. THE LEFT BUTTOCK HAS CLEAR AND WELL DEFINED EDGES, AND MEPILEX IS IN PLACE. THE STAGE II BED SORE IS CLEAN AND INTACT. RIGHT SIDE BUTTOCK IS LIGHT PURPLE BUT BLANCHABLE.
--- NOTE | 2021-11-27 08:39 | NUR ---
PT appears to be greatly improved. With 1 assist, pt was able to move to a recliner where she bathed herself and brushed her hair. Pt is feeding herself, and reading a book on her parish. PT states that " She feels better".
--- NOTE | 2021-11-27 10:02 | NUR ---
PT TRASNFERED BACK TO BED AFTER DR. PAPPAS ROUNDED ON PT
[2021-11-27] MEDS ORDERED: ALDACTONE 25MG25 M1 PO (10:48)
[2021-11-27] MEDS ORDERED: LOPRESSOR 550 MG/TAB PO (10:48)
[2021-11-27] MEDS ORDERED: TYLENOL 325MG325 MG PO (10:48)
[2021-11-27] MEDS ORDERED: ASPIRIN E.C. 8181 MG PO (10:48)
[2021-11-27] MEDS ORDERED: LIPITOR 40MG TA40 MG PO (10:48)
[2021-11-27] MEDS ORDERED: MAG-OX 400400 MG/TAB PO (10:50)
[2021-11-27] MEDS ORDERED: K-DUR20 MEQ PO (10:50)
[2021-11-27] MEDS ORDERED: NORCO 325 MG-51 TAB PO (10:57)
[2021-11-27] MEDS ORDERED: LOVENOX 100100 MG/ML SQ (10:57)
--- NOTE | 2021-11-27 14:22 | NUR ---
GAVE REPORT TO JACLYN IN IPR. PT WILL BE TRANSPORTED VIA WHEELCHAIR.
[2021-11-27] MEDS ORDERED: THERAGRAN TAB1 UDTAB PO (15:57)
[2021-11-27] MEDS ORDERED: BENADRYL25 M2 PO (15:58)
== END 2021-11-27 15:41 | DRG 981 ==
LOC: COL.ER 20:06 → MEDICAL 23:03 → ICU 23:03 → MEDICAL 11-23 00:45 → ICU 11-24 10:53
PROVIDERS: Family Medicine; Internal Medicine; Internal Medicine Interventional Cardiology; Internal Medicine Pulmonary Disease; Nurse Practitioner Family; ADMIT Family Medicine
PROC: 02HK3NZ Insertion of Intracardiac Pacemaker into Right Ventricle, Percutaneous Approach (ICD-10-PCS; principal; 2021-11-24)
DX: I26.99 Other pulmonary embolism without acute cor pulmonale (principal); J96.01 Acute respiratory failure with hypoxia; L89.323 Pressure ulcer of left buttock, stage 3; L89.313 Pressure ulcer of right buttock, stage 3; I21.A1 Myocardial infarction type 2; I47.2 Ventricular tachycardia; I48.19 Other persistent atrial fibrillation; G72.81 Critical illness myopathy; E66.2 Morbid (severe) obesity with alveolar hypoventilation; Z68.41 Body mass index [BMI] 40.0-44.9, adult; J96.12 Chronic respiratory failure with hypercapnia; T50.2X5A Adverse effect of carbonic-anhydrase inhibitors, benzothiadiazides and other diuretics, initial encounter; Y92.238 Other place in hospital as the place of occurrence of the external cause; I08.0 Rheumatic disorders of both mitral and aortic valves; S30.810A Abrasion of lower back and pelvis, initial encounter; I27.20 Pulmonary hypertension, unspecified; I10 Essential (primary) hypertension; E78.5 Hyperlipidemia, unspecified; E11.9 Type 2 diabetes mellitus without complications; Z96.643 Presence of artificial hip joint, bilateral; D72.829 Elevated white blood cell count, unspecified; I71.2 Thoracic aortic aneurysm, without rupture; M62.81 Muscle weakness (generalized); G89.29 Other chronic pain; M17.0 Bilateral primary osteoarthritis of knee; G47.00 Insomnia, unspecified; Z79.84 Long term (current) use of oral hypoglycemic drugs; Z79.01 Long term (current) use of anticoagulants; Z91.14 Patient's other noncompliance with medication regimen; Z86.718 Personal history of other venous thrombosis and embolism; Z86.711 Personal history of pulmonary embolism; Z86.16 Personal history of COVID-19; Z91.19 Patient's noncompliance with other medical treatment and regimen; Z90.89 Acquired absence of other organs; Z91.048 Other nonmedicinal substance allergy status
CPT/HCPCS: 99233-AI; A4314; A9284; C1760; C1769; C1786; C1887; C1894; J0690; J1644; J1650; J1815; J2250; J2370; J2704; J3010; J3480; J7030; L1830; Q9967

== ENCOUNTER 2021-11-27 15:40 | Inpatient (IN) | payer MEDICARE ==
[~2021-11-27] VITALS: Ht 162.6 cm; Wt 100.3 kg
[2021-11-27 13:30] VITALS: BP 122/86; PULSE 94; TEMP 94.5
[~2021-11-27 15:40] MED LIST changes: +ASPIRIN E.C. 8181 MG PO; +COUMADIN 5MG5 MG/TAB PO; +CURCUPLEX-95500 MG PO; +K-DUR20 MEQ PO; +LIPITOR 40MG TA40 MG PO; +LOPRESSOR 550 MG/TAB PO; +LOVENOX 100100 MG/ML SQ; +MAG-OX 400400 MG/TAB PO; +MULTI VITAMINS1 TAB PO; +OMEGA-3 1000 MG1 CAP PO; +TYLENOL 325MG325 MG PO
[2021-11-27] MEDS ORDERED: THERAGRAN TAB1 UDTAB PO (15:57)
[2021-11-27] MEDS ORDERED: BENADRYL25 M2 PO (15:58)
--- NOTE | 2021-11-27 16:44 | NUR ---
Pt arrived to unit from ICU at approx 1520. Pt. assisted by nurse from w/c to bed. Stg II pressure ulcer noted to right inner buttock. Mepilex was placed prior to IPR admission. Pt. denies pain/discomfort. Orientation provided to room/unit. Call light is within her reach
[2021-11-27 18:00] VITALS: BP 122/86; PULSE 94; TEMP 98.1
--- NOTE | 2021-11-27 19:50 | NUR ---
PT SLEEPING IN BED AT PRESENT TIME. NO DISTRESS. CALL LIGHT IN REACH. BED ALARM SET.
--- NOTE | 2021-11-28 00:50 | NUR ---
MAX 1 ASSIST WITH SIT TO STANDING. AMB TO BR. VOIDED. NEEDED ASSIST WITH TOILETING TASKS. BACK TO BED. NEED HELP LIFTING LEGS INTO BED.
--- NOTE | 2021-11-28 03:16 | NUR ---
PT RESTLESS TONIGHT. USING CALL LIGHT FREQUENTLY. PT TOOK OFF MEPILEX FROM BUTTOCKS BECAUSE "NO ONE ELSE HAS" PT SEEMS ALITTLE CONFUSED. DENIES NEED FOR PAIN MED. CALL LIGHT IN REACH. BED ALARM SET.
[2021-11-28 05:01] VITALS: BP 113/81; PULSE 75; TEMP 97.5
--- NOTE | 2021-11-28 05:18 | NUR ---
PT HAS NOT SLEPT WELL THIS NIGHT. PT REPORTS HAS INSOMNIA.
[2021-11-28 06:30] LABS: HEMATOCRIT 40.2 % (37.0-47.0); HEMOGLOBIN 12.1 g/dl (12.5-16.0); MEAN CELL VOLUME 97 fl (80.0-100.0); MEAN CORPUSCULAR HEMOGLOBIN 29 pg (27-31); MEAN CORPUSCULAR HGB CONC 30 g/dl (33.0-37.0); PLATELET COUNT 357 K/mm3 (130-400); RED BLOOD COUNT 4.16 M/mm3 (4.10-5.30); REDCELL DISTRIBUTION WIDTH-CV 13.1 % (11.5-14.5)
[2021-11-28 06:43] LABS: INR 1.5 (0.8-3.0); PROTHROMBIN TIME 17.7 SECONDS (9.7-12.8)
[2021-11-28 07:00] LABS: CALCIUM 9.1 mg/dL (8.4-10.2); CREATININE, serum 0.62 mg/dL (0.57-1.11); MAGNESIUM 1.6 mg/dL (1.6-2.6); POTASSIUM 4.3 mmol/L (3.5-4.5)
[2021-11-28 07:44] LABS: BAND 7 % (0-10); EOSINOPHIL 3 % (0-4); LYMPHOCYTE 13 % (20.0-51.0); NEUTROPHILS 69 % (42.0-75.2); PLATELET ESTIMATE NORMAL (NORMAL)
--- NOTE | 2021-11-28 14:53 | NUR ---
SW met with the patient to complete intake, as the patient is new to [facility]. The patient lives alone in [place]. She reports independence with ADLs before hospitalization and has a cane and walker. The patient's PCP is Dr. Saundra Bansal and she receives her medications from [facility]. She reports no difficulties obtaining her meds. The patient has a DPOA-HC completed and in EMR. She designated her brother, John (ph#[phone]). John lives in [place]. The patient had no questions or concerns for SW at this time.
[2021-11-28 17:18] VITALS: BP 110/75; PULSE 93; TEMP 97.6
--- NOTE | 2021-11-28 19:29 | NUR ---
RECEIVED CHANGE OF SHIFT REPORT FROM DAY SHIFT RN.
--- NOTE | 2021-11-29 00:17 | NUR ---
PATIENT REPORTS IS RESTLESS, CANNOT FIND COMFORTABLE POSITION TO BE ABLE TO SLEEP AND CANNOT SIT AT SIDE OF BED FOR TOO LONG BEFORE WANTING TO LAY BACK DOWN IN BED BUT THEN REQUESTS TO GET BACK UP. DENIES CHEST PAIN/SOA AT THIS TIME.
--- NOTE | 2021-11-29 00:31 | NUR ---
COMPLAINTS OF SHEYLA HAND PAIN, GIVEN TYLENOL, SEE MAR. PATIENT THEN REQUESTED TO GO BACK TO BED AND STATED WANTING TO READ A LITTLE BEFORE TRYING TO GO TO SLEEP. BED ALARM ON, CALL LIGHT WITHIN REACH.
[2021-11-29 05:38] VITALS: BP 124/78; PULSE 91; TEMP 98
--- NOTE | 2021-11-29 07:06 | NUR ---
CHANGE OF SHIFT REPORT GIVEN TO DAY SHIFT RNEMI.
--- NOTE | 2021-11-29 07:07 | NUR ---
BEDSIDE REPORT DONE ORDER. PATIENT RESTING IN BED WITH NO DISTRESS. CALL LIGHT IN REACH.
--- NOTE | 2021-11-29 09:04 | NUR ---
ASSESSMENT DONE ORDER. PATIENT COMPLAIN OF PAIN 3/10 ON KNEES AREA. VOLT CREAM WAS PLACE ON ORDER. PATIENT ABLE TO TAKE MEDICATION WITH OUT ANY ISSUE OF SWALLOWING. LUNG SOUND CLEAR IN ALL LOBES. BOWEL SOUND ACTIVE IN ALL 4 QUADS WITH A BOWEL MOVEMENT(SMALL EARLY AM) PATIENT TOLERATED LOVENOX SHOT. PATIENT ATE 100% OF FOOD. CALL LIGHT IN REACH.
[2021-11-29 09:35] LABS: INR 1.8 (0.8-3.0); PROTHROMBIN TIME 20.3 SECONDS (9.7-12.8)
--- NOTE | 2021-11-29 12:00 | NUR ---
Patient complain of knee pain today. Dr Blackwood order bilateral knee corticosteroid injection and patient accept it. consent form was given to patient and educated about the procedure. patient sign consent and procedure was done.
--- NOTE | 2021-11-29 17:01 | NUR ---
FRENCH AND DR BURRIS RECHECK ON PRESSURE SORE ON PATIENT. PATIENT HAS A STAGE 2 ON COCCXY. NO DRAINAGE NOTED. NEW DRESSING WAS PLACE ON .
[2021-11-29 17:22] VITALS: BP 138/64; PULSE 94; TEMP 97.8
--- NOTE | 2021-11-29 17:53 | NUR ---
Patient stated that her pain has decrease to 3/10 on pain scale. Patient stated that her knees feel so much better
--- NOTE | 2021-11-29 18:35 | NUR ---
RECEIVED CHANGE OF SHIFT REPORT FROM DAY SHIFT RN.
--- NOTE | 2021-11-29 20:00 | NUR ---
OBSERVED TO R GROIN, SM INCISION WELL APPROXIMATED WITH BRUISING AROUND INCISION WITH NO DRAINAGE.
--- NOTE | 2021-11-29 23:24 | NUR ---
PATIENT RESTLESS, DANGLING AT SIDE OF BED FOR SHORT TIME BEFORE SHE WILL LAY BACK DOWN IN BED. BED EXIT ALARM ON WHILE DANGLING AT SIDE OF BED. DENIES ANY DISCOMFORT, REPORTS HAS HAD CHRONIC PROBLEMS WITH SLEEPING FOR THE PAST 20 YEARS "AT LEAST" REPORTED BY PATIENT.
--- NOTE | 2021-11-30 01:52 | NUR ---
PATIENT WOKE REPORTING WANTING TO STOP "SOME PEOPLE FROM DOING WHAT THEY ARE DOING" WITH SOME OBSERVED ANXIOUSNESS IN SPEAKING AND BEHAVIOR. OBSERVED PRIOR TO PATIENT WAKING, PATIENT TALKING IN HER SLEEPING "I WANT TO GET OUT" "I'M READY TO GO" PATIENT STATED THAT NURSING STAFF OVER HEARD ON ROUNDS. PATIENT ORIENTED TO PLACE/TIME/LOCATION WHEN ASKED ORIENTATION QUESTIONS UPON WAKING, WITH CLEAR SPEAKING.
[2021-11-30 05:24] VITALS: BP 113/70; BP 93/79; PULSE 87; TEMP 97.9
--- NOTE | 2021-11-30 07:14 | NUR ---
Change of shift report given to day shift RNHeather.
--- NOTE | 2021-11-30 07:23 | NUR ---
BEDSIDE REPORT DONE. PATIENT RESTING IN BED WITH NO DISTRESS.CALL LIGHTL IN REACH
--- NOTE | 2021-11-30 08:36 | NUR ---
ASSESSMENT DONE. PATIENT ALERTX 3 BUT HAD A SMALL PERIOD OF TIRED NESS AND CONFUSED WHEN WAKING UP. LUNG CLEAR IN ALL LOBES. BOWEL SOUND ACTIVE IN ALL 4 QUARDS. NO PAIN AT THIS TIME. PATIENT SAID SHE SLEEP WELL FOR THE PAST 2 HOURS. CALL LIGHT IN REACH. BREAKFAST WAS IN REACH. WE HAD TO SCOOT PATIENT UP SINCE SHE WAS SLIDING DOWN IN BED.
--- NOTE | 2021-11-30 11:12 | NUR ---
Pt just finished taking a shower with OT assistance. Mepilex dressing changed to right buttock Stg II pressure ulcer. No drainage/bleeding noted. Air mattress remains on bed. Pt. is continuing her OT session. Denies further needs. Call light is within her reach
[2021-11-30 12:25] LABS: INR 2.5 (0.8-3.0); PROTHROMBIN TIME 28.5 SECONDS (9.7-12.8)
--- NOTE | 2021-11-30 15:16 | NUR ---
ANDRY met with the patient to present and review the IPR Team Conference Note. The team has set a tentative discharge for next Sunday, 12/09. They plan to re-evaluate the patient next Sunday, to determine services recommended upon discharge. The patient is in agreement to the plan. She states that her home is a mess and she would like to hire someone to clean it, before anyone would come into her home, if home health is being recommended. ANDRY informed her how these services are private pay. The patient verbalized understanding. SW to provide the patient with a list of private duty agencies and maid/housekeeping services in [place].
[2021-11-30 16:37] VITALS: BP 127/83; PULSE 91; TEMP 98.8
--- NOTE | 2021-11-30 19:05 | NUR ---
RECEIVED CHANGE OF SHIFT REPORT FROM DAY SHIFT RN. PATIENT UP IN CHAIR WITH EXIT ALARM ON AND CALL LIGHT WITHIN REACH. DENIES ANY NEEDS AT TIME OF REPORT.
--- NOTE | 2021-11-30 19:05 | NUR ---
RECEIVED CHANGE OF SHIFT REPORT FROM DAY SHIFT RN. PATIENT UP IN CHAIR DURING REPORT WITH NO NEEDS REPORTED. EXIT ALARM ON WHILE UP IN CHAIR, CALL LIGHT WITHIN REACH.
[2021-12-01 05:02] VITALS: BP 133/97; PULSE 82; TEMP 97.6
[2021-12-01 06:47] LABS: INR 2.5 (0.8-3.0); PROTHROMBIN TIME 29.4 SECONDS (9.7-12.8)
[2021-12-01 07:10] VITALS: BP 130/88
--- NOTE | 2021-12-01 07:21 | NUR ---
BEDSIDE REPORT DONE. PATIENT AWARE AND ALERT X 3. SLEEP WELL PER THE NIGHT NURSE. BREAKFAST WAS DELIVERED.
--- NOTE | 2021-12-01 07:29 | NUR ---
PATIENT REPORTED CONCERN TO R GROIN INCISIONAL AREA, REPORTING "FOUND A HARD BUMP THERE" OBSERVED NO REDNESS, CONTINUES WITH FADING BRUISING OBSERVED, NO ACTIVE BLEEDING, OBSERVED SMALL HARD LUMP UNDER SKIN SURFACE UNDER R GROIN INCISION, UNCHANGED FROM CHARTED FINDINGS MENTIONING HARD LUMP FOUND ON PALPATIONS FROM PROVIDERS.
--- NOTE | 2021-12-01 08:47 | NUR ---
ASSESSMENT DONE ORDER. PATINET ALERT AND HAPPY TODAY. STATED THAT SHE SLEEP WELL LAST NIGHT. HAD A LARGE BOWEL MOVEMENT. LUNG SOUND CLEAR IN ALL LOBES. BOWEL SOUND ACTIVE. ATE 100% OF HER FOOD TODAY.
--- NOTE | 2021-12-01 13:54 | NUR ---
ANDRY met with the patient to provide her with a list of private duty agencies and maid/housekeeping services. ANDRY also discussed setting up a patient/family meeting with her brother. The patient states that her brother lives out of state and she does not see a purpose of involving him in the meeting. She is okay with doing the meeting by herself with the team at 0930 on Sunday. ANDRY notified the IPR team.
--- NOTE | 2021-12-01 14:33 | NUR ---
Code of 4 chosen for oral hygiene was determined by team discussion to be the most usual performance before interventions for this patient during the assessment period. Code of 2 chosen for toilet hygiene was determined by team discussion to be the most usual performance before interventions for this patient during the assessment period. Code of 88 chosen for toilet transfer was determined by team discussion to be the most usual performance before interventions for this patient during the assessment period. Code of 1 chosen for putting on/taking off footwear was determined by team discussion to be the most usual performance before interventions for this patient during the assessment period. Code of 3 chosen for lying to sitting on side of bed was determined by team discussion to be the most usual performance before interventions for this patient during the assessment period. Code of 2 chosen for chair/bed to chair transfer was determined by team discussion to be the most usual performance before interventions for this patient during the assessment period. Code of 2 chosen for sit to stand was determined by team discussion to be the most usual performance before interventions for this patient during the assessment period.
--- NOTE | 2021-12-01 16:36 | NUR ---
Pt assisted to bathroom using fww and gait belt. She denies pain/discomfort - reports she was given pain medication approx 1 hr ago. Denies additional needs. Call light is within her reach
[2021-12-01 17:07] VITALS: BP 123/83; PULSE 83; TEMP 98
--- NOTE | 2021-12-01 20:56 | NUR ---
PT RESTING ON HER SIDE. DROWSY. REQUEST FOR PAIN MED FOR KNEES. SEE MAR. PT IS ORIENTED BUT ACTIBNG ALITTLE CONFUSED. ASKED WHERE SHE IS, HER ANSWER IS CORRECT. TALKING ABOUT TV SHOW AND THEN ASKING FOR HELP TO TURN. ENC PT TO TURN SELF AND SHE WAS ABLE TO. PT REPORTS SHE IS SO COLD BUT DENIED NEED FOR EXTRA BLANKET. SHE REPLIED, "IT WILL WORK ITS WAY OUT." CALL LIGHT IN REACH. BED ALARM SET.
--- NOTE | 2021-12-02 | NUR ---
PT FREQUENTLY SET BED ALARM ON. PT REPOSITIONS SELF TO EDGE OF BED. ASK TO REPOSITION MORE TO CENTER OF BED. PT REQUEST BED ALARM NOT SET. ASSISTED PT TO BR WITH WALKER. PT ABLE TO MANAGE TOILETING TASKS PER SELF. BACK TO BED. ABLE TO LIFT LEGS BACK INTO BED. CALL LIGHT IN REACH. BED ALARM SET.
[2021-12-02 05:48] VITALS: BP 121/82; PULSE 76; TEMP 97.6
[2021-12-02 07:08] LABS: INR 2.7 (0.8-3.0); PROTHROMBIN TIME 31.3 SECONDS (9.7-12.8)
[2021-12-02 17:23] VITALS: BP 139/99; PULSE 81; TEMP 98
[2021-12-03 05:33] VITALS: BP 122/77; PULSE 84; TEMP 97.9
--- NOTE | 2021-12-03 07:19 | NUR ---
Shift report received from overnight associate RN
[2021-12-03 07:25] LABS: INR 3.9 (0.8-3.0)
[2021-12-03 07:28] LABS: PROTHROMBIN TIME 45.8 SECONDS (9.7-12.8)
--- NOTE | 2021-12-03 07:34 | NUR ---
Call recieved from Shiraz Eaton to report critical PT value of 45.8, INR 3.9. Dr. Maguire notified at 0744. Per Dr. Maguire, monitor patient for now and hold warfarin
--- NOTE | 2021-12-03 09:33 | NUR ---
Pt assisted to toilet using FWW and gait belt. Mepilex dsg changed to right inner buttock. No STG II ulcer present. Site is healed, is red, and is blanchable. Pt. assisted to bed after toileting. She denies pain/discomfort. Call light is within her reach. Bed alarm is on
--- NOTE | 2021-12-03 17:25 | NUR ---
Pt assisted to recliner at her request for dinner. BLE elevated on footrest. She denies pain/discomfort or additional needs. Call light is within her reach. Chair alarm is on
[2021-12-03 17:58] VITALS: BP 152/85; PULSE 81; TEMP 97.8
[2021-12-04 05:41] VITALS: BP 104/75; PULSE 65; TEMP 97.5
[2021-12-04 06:38] LABS: INR 3.7 (0.8-3.0); PROTHROMBIN TIME 42.9 SECONDS (9.7-12.8)
--- NOTE | 2021-12-04 06:42 | NUR ---
Shift report received from weight shifter RN. Pt. sleeping in bed. HOB elevated approx 20 degrees. Call light is within her reach. Bed alarm is on
--- NOTE | 2021-12-04 08:48 | NUR ---
Pt assisted with getting dressing. Pt. transferred to recliner using gait belt and FWW. BLE elevated on footrest. She denies pain/discomfort. She feels that the Voltaren Gel is very helpful with controlling her knee pain. Call light is within her reach. Chair alarm is on
--- NOTE | 2021-12-04 09:51 | NUR ---
Pt supervised as she transferred from recliner to bed with gait belt, FWW. She denies pain/discomfort. Denies additional needs. Call light is within her reach. Bed alarm is on
--- NOTE | 2021-12-04 15:19 | NUR ---
Pt. sitting up in recliner w/ BLE elevated on footrest. Pain medication was given with lunch today. She reports "working hard" with PT/OT yesterday. She denies pain or discomfort. Denies further needs. Call light is within her reach. Chair alarm is on
[2021-12-04 17:17] VITALS: BP 131/83; PULSE 93; TEMP 97.6
--- NOTE | 2021-12-04 19:00 | NUR ---
REQUESTING TO GO TO BED, REPORTS BEING VERY TIRED AND HAS BEEN SITTING UP "FOR A LONG TIME". OBSERVED GAIT SOMEWHAT AWKWARD DUE TO FATIGUE BUT ABLE TO FACILITY MECHANIC FEET WITH STEPS. REQUESTS PAIN MEDS WHEN NEXT AVAILABLE.
--- NOTE | 2021-12-04 19:00 | NUR ---
RECEIVED CHANGE OF SHIFT REPORT FROM DAY SHIFT RN. PATIENT UP IN CHAIR DURING REPORT WITH EXIT ALARM ON, CALL LIGHT WITHIN REACH. DENIES NEEDS DURING REPORT.
[2021-12-05 05:16] VITALS: BP 119/84; PULSE 66; TEMP 97.5
--- NOTE | 2021-12-05 06:59 | NUR ---
BEDSIDE REPORT DONE. PATIENT RESTING ON HER RIGHT SIDE. NO DISTRESS NOTED.
--- NOTE | 2021-12-05 07:00 | NUR ---
CHANGE OF SHIFT REPORT GIVEN TO DAY SHIFT RNMEI.
[2021-12-05 07:23] LABS: INR 2.2 (0.8-3.0); PROTHROMBIN TIME 25.6 SECONDS (9.7-12.8)
--- NOTE | 2021-12-05 08:21 | NUR ---
ASSESSMENT DONE ORDER. PATIENT IN BED RESTING , ATE ABOUT 100% OF HER FOOD. PATIENT ALREADY BEEN TO THE BATHROOM. PATIENT STILL WEAK AND NEED SOME ASSISTANCE AT TIMES. NO PAIN NOTED. ABLE TO TAKE ALL MEDICATION WITH OUT ANY ISSUE. LUNG SOUND CLEAR IN ALL LOBES. BOWEL SOUND ACTIVE IN ALL 4 QUADS. CALL LIGHT IN REACH.
--- NOTE | 2021-12-05 14:50 | NUR ---
PATIENT REQUESTED A PAIN PILL DUE TO THERAPY TODAY. NORCO PAIN MEDICATION WAS GIVEN. HER PAIN WAS 5/10 KNEE
--- NOTE | 2021-12-05 15:10 | NUR ---
SW attended team meeting this morning. Also in attendance is the patient's MD, PT,OT, ST and IPR director. Team review patient's progress and potential discharge date of 12/09. MD answers patient's questions. Patient verbalized her main concern is her sleeping patterns. Patient states that she has not had a sleep study before.MD voices that he will look into getting her a referral. All other questions answered.
[2021-12-05 17:17] VITALS: BP 124/85; PULSE 84; TEMP 98.1
--- NOTE | 2021-12-05 19:02 | NUR ---
RECEIVED CHANGE OF SHIFT REPORT FROM DAY SHIFT RN. PATIENT RESTING IN BED WITH EXIT ALARM ON AND CALL LIGHT WITHIN REACH. DENIES ANY NEEDS AT THIS TIME.
--- NOTE | 2021-12-05 22:37 | NUR ---
REQUESTED TO SIT UP IN CHAIR "FOR A LITTLE WHILE" REPORT SHE COULD NOT GET COMFORTABLE IN BED AT THIS TIME. EXIT ALARM ON WHILE UP IN CHAIR, WITH CALL LIGHT WITHIN REACH.
--- NOTE | 2021-12-05 23:41 | NUR ---
PATIENT REQUESTED/GIVEN PAIN MED, SEE MAR FOR MED GIVEN. DENIES ANY OTHER NEEDS AT THIS TIME.
--- NOTE | 2021-12-06 03:29 | NUR ---
REPORTS FEELING RESTLESS AND UNABLE TO SLEEP. WANTING TO SIT UP IN CHAIR, REQUESTED AND GIVEN HOT TEA.
[2021-12-06 04:26] VITALS: BP 122/66; PULSE 82; TEMP 97.3
--- NOTE | 2021-12-06 07:02 | NUR ---
BEDSIDE REPORT DONE. PATIENT RESTING IN BED WITH EYES CLOSED. CALL LIGHT IN REACH. NO SIGN OF PAIN/GRIMACING
--- NOTE | 2021-12-06 07:11 | NUR ---
CHANGE OF SHIFT REPORT GIVEN TO DAY SHIFT RNMEI.
--- NOTE | 2021-12-06 08:28 | NUR ---
ASSESSMENT DONE TODAY. PATIENT IN BED RESTING. ALERT X 3 WITH SLIGHT PAIN IN NECK AREA. no PAIN IN KNEES TODAY. STOMACH IS SOFT AND ABLE TO HERE ALL 4 QUADS. LUNG SOUND CLEAR IN ALL LOBES. PATIENT ATE 100% OF HER FOOD. PATIENT STILL NEED ASSISTANCE IN SOME AREA BUT ABLE TO DO MOST OF THE WORK. NO PAIN MEDICATION GIVEN. PATIENT STATED IT NORMAL GOES AWAY AFTER RESTING IN BED FOR A WHILE. CALL LIGHT IN REACH.
[2021-12-06 09:19] LABS: INR 1.8 (0.8-3.0); PROTHROMBIN TIME 21.2 SECONDS (9.7-12.8)
--- NOTE | 2021-12-06 11:49 | NUR ---
Pt supervised as she transferred from bed to recliner for lunch. Call light is within her reach. Chair alarm is on
[2021-12-06 17:30] VITALS: BP 105/69; PULSE 92; TEMP 98.6
--- NOTE | 2021-12-06 19:14 | NUR ---
PATIENT HAS BEEN OUT OF BED ALL DAY SINCE LUNCH. PATIENT HAS BEEN IN RECLINER WATCHING TV AND READING A BOOK. GAVE REPORT TO NIGHT NURSE REGARDING PATIENT CARE
--- NOTE | 2021-12-06 19:43 | NUR ---
RECEIVED CHANGE OF SHIFT REPORT FROM DAY SHIFT RN. PATIENT UP IN CHAIR WITH EXIT ALARM ON WITH CALL LIGHT WITHIN REACH.
[2021-12-07 04:45] VITALS: BP 113/80; PULSE 76; TEMP 97.5
[2021-12-07 06:35] LABS: INR 2.3 (0.8-3.0); PROTHROMBIN TIME 26.2 SECONDS (9.7-12.8)
--- NOTE | 2021-12-07 06:55 | NUR ---
Shift report received from warehouse worker 2nd shift RN
--- NOTE | 2021-12-07 06:58 | NUR ---
CHANGE OF SHIFT REPORT GIVEN TO DAY SHIFT RNJACOBO.
--- NOTE | 2021-12-07 11:32 | NUR ---
Pt sitting in recliner working on crossword puzzles. She denies pain or discomfort. Denies additional needs. Call light is within her reach. Chair alarm is on
--- NOTE | 2021-12-07 15:58 | NUR ---
Pt resting in bed. Denies pain or discomfort. She is now Mod I status in her room. Call light is within her reach
[2021-12-07 16:59] VITALS: BP 151/106; PULSE 82; TEMP 97.6
[2021-12-07 17:39] VITALS: BP 120/90
--- NOTE | 2021-12-08 04:26 | NUR ---
pt up in room independently, required assist with pericare following BM this am, norco given x1 for c/o knee pain. On 2L O2 while sleeping, maintaining fluid restriction w/o difficulty.
[2021-12-08 04:43] VITALS: BP 122/78; PULSE 71; TEMP 97.9
[2021-12-08 07:07] LABS: INR 2.9 (0.8-3.0); PROTHROMBIN TIME 33.5 SECONDS (9.7-12.8)
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
[2021-12-08 17:22] VITALS: BP 102/71; PULSE 84; TEMP 97.6
--- NOTE | 2021-12-08 20:00 | NUR ---
PT UP TO BR. NEEDS ASSIST WITH HYGEINE POST BM. ENC PT TO TROUBLESHOOT WHAT WOULD SHE DO AT HOME. PT RELATES IS PUTTING IN A BIDEAU AND HAS DEVICE FOR ASSIST. PT MOD I IN ROOM WITH WALKER. CALL LIGHT IN REACH.
--- NOTE | 2021-12-09 01:11 | NUR ---
TYLENOL 650MG GIVEN PER REQUEST FRO KNEE PAIN. PT UP AND AROUND ROOM. NO FURTHER NEEDS.
--- NOTE | 2021-12-09 04:00 | NUR ---
PT SLEEPING. NO DISTRESS.
[2021-12-09 05:31] VITALS: BP 110/87; PULSE 69; TEMP 98.7
[2021-12-09 07:08] LABS: INR 3.5 (0.8-3.0); PROTHROMBIN TIME 40.4 SECONDS (9.7-12.8)
--- NOTE | 2021-12-09 09:32 | NUR ---
SW met with patient to present her with the [facility].IM form. Patient is provided education and patient verbalized her agreement and understanding of the discharge plan for today to return home with HH. Signed original placed in the patients chart and copy provided back to the patient. SW spoke with patient about which HH option she would like to go with. Patient states that she would like a referral to [facility]. Patients clinical informatin and discharge orders faxed to [facility]. Patient reports that she is going to call an Uber to get home. Patient is able to afford this and does not need SW assistance for this. Discharge plan: Home with HH
[2021-12-09] MEDS ORDERED: FERROUSAL325 MG PO (09:44)
[2021-12-09] MEDS ORDERED: COUMADIN 5MG5 MG/TAB PO (09:44)
[2021-12-09] MEDS ORDERED: LIPITOR 40MG TA40 MG PO (09:45)
[2021-12-09] MEDS ORDERED: ALDACTONE 25MG25 M1 PO (09:45)
[2021-12-09] MEDS ORDERED: ASPIRIN E.C. 8181 MG PO (09:45)
[2021-12-09] MEDS ORDERED: LOFIBRA200 MG PO (09:45)
[2021-12-09] MEDS ORDERED: LOPRESSOR 550 MG/TAB PO (09:45)
[2021-12-09] MEDS ORDERED: K-DUR20 MEQ PO (09:46)
[2021-12-09] MEDS ORDERED: MAG-OX 400400 MG/TAB PO (09:46)
[2021-12-09] MEDS ORDERED: GLUCOPHAGE500 MG/TAB PO (09:46)
[2021-12-09] MEDS ORDERED: MELATIN 3 MG-11 TAB PO (09:47)
[2021-12-09] MEDS ORDERED: VOLTAREN GEL 1%1 TU TP (09:48)
[2021-12-09] MEDS ORDERED: NORCO 325 MG-51 TAB PO (09:49)
--- NOTE | 2021-12-09 13:13 | NUR ---
1315 - DISCHARGE PAPERWORK AND PATIENT EDUCATION PROVIDED. ALL QUESTIONS ANSWERED. PATIENT SAFELY TRANSPORTED TO ER ENTRANCE BY STAFF.
--- NOTE | 2021-12-09 13:39 | NUR ---
Notified by patient's RN that the patient ordered herself an Uber to get home. Upon picking the patient up, the skip load driver refused to take that patient home as she could not get into the vehicle. Per staff, vehicle type that arrive was a larger raised truck. Patient brought back to her room and RN contacted this SW. SW contacted [employer] to assist. Patient is provided a transportation voucher.
--- NOTE | 2021-12-09 14:43 | NUR ---
signal worker received phone call from Malika at [facility] stating that they do not have the staffing to assist with treatment. Patient informed and then decided to pick [facility] off of the [email or web address] list. Per [facility], they will not service as far into [facility] [place] as the patient's address. Attempt made to contact the patient via cell phone as she has discharged. Phone call went to [email or web address] and mailbox is full. Patients clinical information faxed to [facility]. Phone call made to agency and the above explained.
--- NOTE | 2021-12-09 15:27 | NUR ---
Discharge QIM scores were reviewed by the team. Code of 6 chosen for toilet hygiene was determined by team discussion to be the most usual performance for this patient during the discharge assessment period.--PD Brittney
--- NOTE | 2021-12-16 08:51 | NUR ---
track repair worker contacted [facility] health and confirmed that they admitted patient to their services.
== END 2021-12-09 13:16 | disposition home health service (06) | DRG 947 ==
PROVIDERS: Physical Medicine & Rehabilitation Sports Medicine; ADMIT Internal Medicine
DX: R53.81 Other malaise (principal); L89.323 Pressure ulcer of left buttock, stage 3; L89.313 Pressure ulcer of right buttock, stage 3; I26.99 Other pulmonary embolism without acute cor pulmonale; I21.4 Non-ST elevation (NSTEMI) myocardial infarction; J96.01 Acute respiratory failure with hypoxia; I48.20 Chronic atrial fibrillation, unspecified; I47.2 Ventricular tachycardia; G72.81 Critical illness myopathy; I27.29 Other secondary pulmonary hypertension; G47.33 Obstructive sleep apnea (adult) (pediatric); R26.89 Other abnormalities of gait and mobility; E11.9 Type 2 diabetes mellitus without complications; I71.9 Aortic aneurysm of unspecified site, without rupture; E78.5 Hyperlipidemia, unspecified; G47.00 Insomnia, unspecified; Z86.16 Personal history of COVID-19; Z96.643 Presence of artificial hip joint, bilateral; Z91.048 Other nonmedicinal substance allergy status; Z79.01 Long term (current) use of anticoagulants; Z73.6 Limitation of activities due to disability; Z79.899 Other long term (current) drug therapy; Z79.82 Long term (current) use of aspirin; Z79.891 Long term (current) use of opiate analgesic; Z91.81 History of falling; Z95.0 Presence of cardiac pacemaker; Z86.718 Personal history of other venous thrombosis and embolism; M17.0 Bilateral primary osteoarthritis of knee
CPT/HCPCS: J1650; J3301

== ENCOUNTER 2022-08-29 20:01 | Inpatient (IN) | payer MEDICARE ==
[~2022-08-29] VITALS: Ht 10.2 cm; Wt 112.6 kg
[~2022-08-29 20:01] MED LIST changes: +BENADRYL25 M2 PO; +MELATIN 3 MG-11 TAB PO; +THERAGRAN TAB1 UDTAB PO; +VOLTAREN GEL 1%1 TU TP
[2022-08-29] MEDS ORDERED: PRINIVIL20 MG PO (20:07)
[2022-08-29] MEDS ORDERED: ALDACTONE50 MG PO (20:07)
[2022-08-29] MEDS ORDERED: MAG-OX 400400 MG/TAB PO (20:07)
[2022-08-29] MEDS ORDERED: COUMADIN 3MG3 MG/TAB (20:07)
[2022-08-29 20:50] LABS: BASO % 0.3 % (0.0-2.0); EOS # 0.2 K/mm3 (0.0-0.7); EOS % 2.6 % (0.0-4.0); GRAN # 6.9 K/mm3 (1.4-6.5); HEMATOCRIT 51.3 % (37.0-47.0); LYMPH % 11.1 % (20.0-51.0); MEAN CELL VOLUME 98 fl (80.0-100.0); MEAN CORPUSCULAR HEMOGLOBIN 29 pg (27-31); MEAN CORPUSCULAR HGB CONC 29 g/dl (33.0-37.0); MEAN PLATELET VOLUME 9.5 fl (7.4-10.4); MONO # 0.8 K/mm3 (0.1-0.6); MONO % 8.7 % (1.7-9.3); PLATELET COUNT 297 K/mm3 (130-400); RED BLOOD COUNT 5.23 M/mm3 (4.10-5.30); REDCELL DISTRIBUTION WIDTH-CV 16.1 % (11.5-14.5)
[2022-08-29 21:03] LABS: ALBUMIN 3.4 gm/dL (3.4-4.8); BILIRUBIN,TOTAL 0.7 mg/dL (0.2-1.2); CALCIUM 9.1 mg/dL (8.4-10.2); CREATININE, serum 0.87 mg/dL (0.57-1.11); POTASSIUM 4.9 mmol/L (3.5-4.5); TOTAL PROTEIN 6.6 gm/dL (6.2-8.1)
[2022-08-29 21:06] LABS: COLLECTION METHOD CATHETER
[2022-08-29 21:09] LABS: TROPONIN-I 0.026 ng/mL (0.00-0.033)
[2022-08-29 21:11] LABS: MUCOUS Present (NOT PRESENT); SQUAMOUS EPITHELIAL None Seen /hpf (0-10); URINE BACTERIA Rare /hpf (NONE SEEN); URINE RBC 0-2 /hpf (0-2)
[2022-08-29 21:12] LABS: URINE APPEARANCE Hazy (CLEAR/HAZY); URINE BLOOD Negative (NEGATIVE); URINE COLOR Yellow (YELLOW); URINE GLUCOSE Negative (NEGATIVE); URINE KETONE Negative (NEGATIVE); URINE NITRATE Negative (NEGATIVE); URINE PROTEIN(semi-quant) 2+ (NEGATIVE); URINE UROBILINOGEN 0.2 (NEGATIVE)
[2022-08-30] VITALS (521 sets, daily range): BP systolic 103–107; BP diastolic 70–92; PULSE 64–110; TEMP 97.7–98.8; O2SAT 61–100
[2022-08-30 01:24] LABS: INR 1.2 (0.8-3.0); PROTHROMBIN TIME 14.2 SECONDS (9.7-12.8)
[2022-08-30 01:43] LABS: PARTIAL THROMBOPLASTIN TIME 30.4 SECONDS (26.0-37.0)
--- NOTE | 2022-08-30 03:24 | NUR ---
0015 PT ARRIVED FROM ER VIA ER STRETCHER. PT TRANSFERED X4 ASSIST TO ICU BED. RT AT BEDSIDE TO HELP WITH TRANSFER. PT IS ALERT AT THIS TIME PT CAN STATE NAME AND BUT THEN SHORTLY STARTS RAMBLING TO TANGENTIAL SPEACH LOSING TRAIN OF THOUGHT AND HAVING TO REORIENT PT TO QUESTIONS. PT COOPERATIVE AT THIS TIME BEING VERY CHEERFUL AND TELLING THIS NURSE SHE LOOKED LIKE LINDA. 0200AM PT PULLED OFF ALL LINES AND WAS ATTEMPTING TO GET OUT OF BED. STATING I HAVE TO GO. THIS NURSE REORIENTED PT TO CALM HER AND GET BACK INTO BED. PT STATED SHE THEN HAD TO PEE. NURSE EDUCATED THAT PT HAD WHALEY PLACED. HOWEVER PT WAS NOT UNDERSTANDING AND CONTINUED TO TAKE OF BIPAP, BP CUFF AND PULSE OX. KENNEDI BERGMAN CALLED AT THIS TIME. 0230 0.5MG ATIVAN ORDERED. RT AT BEDSIDE TO ASSIST WITH BIPAP PT WAS CONTINING TO TAKE OFF. ATIVAN EFFECTIVE. PT RESTING. VS WNL. SECOND IV SITE OBTAIN BY THIS NURSE. IV PLACED IN RIGHT WRIST 20G X1 ATTEMPT.
[2022-08-30 04:50] LABS: ARTERIAL BLD GAS O2 SATURATION 95.1 % (92-100); ARTERIAL BLD GAS TCO2 CT 33.8; ARTERIAL BLOOD GAS BASE EXCESS 5.5 (-2-2); ARTERIAL BLOOD GAS HCO3 32.1 meq/L (22-26); ARTERIAL BLOOD GAS PCO2 54.9 mmHg (35-45); ARTERIAL BLOOD GAS pH 7.39 (7.35-7.45)
[2022-08-30 05:13] LABS: BASO % 0.5 % (0.0-2.0); EOS # 0.3 K/mm3 (0.0-0.7); GRAN % 72.4 % (42.2-75.2); HEMATOCRIT 50.3 % (37.0-47.0); HEMOGLOBIN 14.5 g/dl (12.5-16.0); LYMPH # 1.3 K/mm3 (1.2-3.4); LYMPH % 15.3 % (20.0-51.0); MEAN CELL VOLUME 98 fl (80.0-100.0); MEAN CORPUSCULAR HEMOGLOBIN 28 pg (27-31); MEAN CORPUSCULAR HGB CONC 29 g/dl (33.0-37.0); MEAN PLATELET VOLUME 9.4 fl (7.4-10.4); MONO # 0.7 K/mm3 (0.1-0.6); MONO % 8.3 % (1.7-9.3); PLATELET COUNT 257 K/mm3 (130-400); RED BLOOD COUNT 5.12 M/mm3 (4.10-5.30); REDCELL DISTRIBUTION WIDTH-CV 15.9 % (11.5-14.5)
[2022-08-30 05:33] LABS: CREATININE, serum 0.86 mg/dL (0.57-1.11); MAGNESIUM 1.6 mg/dL (1.6-2.6); POTASSIUM 4.5 mmol/L (3.5-4.5)
--- NOTE | 2022-08-30 07:56 | NUR ---
PT IS AGITATED THIS MORNING. Does not want her bipap on. will allow this RN to place oxymask on but continues to pull it off. Pt pulled out one of her IVS and continues to try and pull out her second iv. Her IVs are concealed. pt is given sips of water to attempt to calm her as she is screaming we are in her house and we need to give her the food she wants. PT is reoriented to that she is in the ICU after being found down at home. Pt explains she does not live at home and that she hasnt been home in over [address] London is notified of consult/situation and Dr. Weston also notified.
--- NOTE | 2022-08-30 09:30 | NUR ---
[facility] Nurse Estefania shared that the patient had not been seen in office since February of 2022. She was a patient of Dr. Bansal'feliberto, but due to multiple issues was removed as one of her patient's. Harish had her annual check-up in February & saw PHILOMENA Campos. Patient was referred to GI at that time for colonoscopy, but had never been seen by GI. She had missed several Cardiology follow-up appointments in the past. In February, the patient stated that she had severe depression, refused a referral to [facility], but stated that she would call if she felt her depression was worsening. Emergency contact information was Christo (brother akjanice Dick) in [place]. Informed August that kvng was . Estefania stated that there was lots of documentation of transport issues for reasons that patient did not attend appointments. 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 There was information that the patient had a sister in [place], Muna, but no contact number. Estefania stated that she would talk with the patient's Operations Support Representative & call back with any further information. 1000 - Return call from August. Patient's healthcare social worker reported that she had contact information for Gege Baltazar in [place] from a few years ago. She was not sure if this was the patient's sister or [id number]. Historically, there were never any concerns related if the patient was competent to make her own decisions. rigging up worker advised that the patient's landlord's brother was the patient's neighbor & helped her in her home a lot in the past; he may have information. APS was notified of this patient's situation at the end of 2021 & the healthcare social worker's contact was Franklyn. 1020 - Contact made with Pulmonary office coordinator receptionist. No additional contact information in the patient's file. Patient was last seen by PACHECO Holliday in 2019, was set up for a PFT & walk test, but never showed.
--- NOTE | 2022-08-30 10:00 | NUR ---
Palliative/goals of care meeting with patient per Dr. London's request. Usman (ANDRY) & this RN at bedside with patient. Patient on bipap & took 3 attempts to arouse. Placed on oxymask in order to understand patient; SpO2 maintained above 90%. Patient difficult to understand & agitates easily. Asked patient if she had a DPOA or decision maker should she not be able to make decisions. Brother/DPOA as listed in EMR is . Patient does not provide an alternative contact. Stated that sister Muna is in [place]; gave permission to look through personal items & get Muna's contact info from phone. When asked patient about ventilator support & CPR she did not answer. This RN & SW looked for contact information for next of kin in patient's purse; unable to locate. There is not a phone in her personal belongings. Patient was placed back on bipap in the middle of conversation due to agitation. Total time with patient 10 minutes. 1015 - RT at bedside & bipap removed. 1020 - Patient with SpO2 in the 70s. This RN & KIMBERLY Campa in patient room to assess. Patient pulling at oxymask. Advised patient that if she did not leave the mask alone then there would be a possibility that she may need intubated & to be on a ventilator. Asked patient is that is something that she would want & she answered with a firm "NO". Asked patient if her heart were to stop would she want CPR to include chest compressions & medications to restart her heart; she answered with a firm "NO". Orientation assessed; alert to [place], date/month of & name. Would not answered to current date or year or where she was in [place]. Dr. London & Dr. Weston updated on situation. 1040 - Dr. Weston as bedside to discuss bipap use & oxygen with patient. Discussed life sustaining measures. Asked patient about comfort care; patient states "YES" that is what she wants. Dr. Weston asked about comfort care a 2nd time & patient answered "YES" in reference to that is her wish.
--- NOTE | 2022-08-30 10:30 | NUR ---
PT is refusing oxygen and has exclaimed to Dr. Weston and this RN that she does not want any treatment and that she just wants to be comfortable.
--- NOTE | 2022-08-30 12:04 | NUR ---
template worker and Casandra Nair met with patient regarding palliative care. Patient is unable to verbalize at this time, however was able to state that her brother/durable power of commercial real estate attorney for health care . Patient was unable to provide us with information about her sister. Casandra and physician approached patient later and patient advised that she wanted to be a DNR and did not want ventilator support. Worker was unable to locate patient's phone at the hospital as patient stated the sister's number is on her phone. Worker contacted [facility] police dispatch and EMS to inquire of information on next of kin, without success. Worker called numbers listed in patient's note pads in her purse without success in finding someone that knew patient nor having patient's sister's information. Worker contacted patient's rohit Jordan #[phone] and advised of the above information and requested assistance locating patient's cell phone and any information to help us locate the sister. Jordan stated that patient did not have children and that his brother helped patient with jetting machine operator. Jordan advised that he would have his brother look for a cell phone in patient's apartment and any identifying information on patient's sister. Awaiting call back from Jordan with information.
--- NOTE | 2022-08-30 12:27 | NUR ---
PICC order recieved, ready to place, however pts primary nurse informed this RN that pt is going comfort care. Will not procede with PICC placement unless status changes.
--- NOTE | 2022-08-30 14:10 | NUR ---
rohit Ortega, states they have secured patient's cell phone and will bring it to the hospital now.
--- NOTE | 2022-08-30 18:12 | NUR ---
1806- HEART SOUNDS NO LONGER ASUCULTATED. CONFIRMED BY TWO RNS. HOUSE SUPERVISORS AND HOSPITALIST NOTIFIED. 1806- TIME OF
--- NOTE | 2022-08-30 20:00 | NUR ---
[facility] reference number [id number]. Notified by KIMBERLY Miller at 8708
--- NOTE | 2022-08-31 01:00 | NUR ---
2006 Carol Page from [employer] called stating that the niece is unable to do medical and social history on patient and would need to wait until we are able to get ahold of patients sister in [place]. 2038: Patient niece called stating that she spoke with patients sister. Yoly Nunez. Phone number to [place] given was [phone]. 2046: [facility] notified of sisters number [id number]: [facility] having trouble keeping connection with patients sister. Appears to "be in a remote area" with poor signal. Will continue to try. 0046: Called [facility] for updates. Still unable to get ahold of sister due to signal issues. Will call back if there able to talk with sister.
--- NOTE | 2022-08-31 05:43 | NUR ---
Spoke with Virginia at [facility] for updates. Plan is to talk with aminata later this AM to have patient sister call [facility] directly. Will update [facility] once more information arises.
--- NOTE | 2022-08-31 07:38 | NUR ---
On 08/30/22, Eric (neighbor) brought patient's cell phone and staff were able to secure family contacts. electrical linesworker left messages for (what was thought to be family numbers) and was contacted by Carolina villa. Worker provided Carolina with patient's information and confirmed that patient does have a living sister in [place]. Carolina advised that she would obtain sister's number and call ICU with the information.
--- NOTE | 2022-08-31 09:16 | NUR ---
laceworker spoke with patient's sister, Muna Nunez #[phone] and her yMke Nance and advised that it is imperative that Muna contact [facility] to discuss concenting to donation. Myke advised that he would help Muna with this and Myke advised that they want to use [facility] in [place] #[phone].
--- NOTE | 2022-08-31 09:38 | NUR ---
protective services case worker spoke with Kayla Hanna at [facility] #[phone] and provided Muna's number and home information chosen by the family. Worker spoke with Robin at [facility] in [place] #[phone] and advised of the and Muna's number. Awaiting [facility] to make contact with Muna and authorize release and destination of patient's body. Worker contacted Rush Nunez #[phone] and advised of the above and provided thanks for his efforts in providing family information.
--- NOTE | 2022-08-31 12:15 | NUR ---
home here to take patient. Purse with many contents, Noa, cell phone, bags of chargers & clothes sent with patient.
== END 2022-08-31 12:15 | disposition expired | DRG 314 ==
LOC: COL.ER 20:01 → ICU 22:33
PROVIDERS: Internal Medicine Pulmonary Disease; Personal Emergency Response Attendant; Student in an Organized Health Care Education/Training Program; ADMIT Internal Medicine
PROC: 5A09357 Assistance with Respiratory Ventilation, Less than 24 Consecutive Hours, Continuous Positive Airway Pressure (ICD-10-PCS; principal; 2022-08-29)
DX: I27.20 Pulmonary hypertension, unspecified (principal); J96.01 Acute respiratory failure with hypoxia; J96.02 Acute respiratory failure with hypercapnia; I48.20 Chronic atrial fibrillation, unspecified; G47.33 Obstructive sleep apnea (adult) (pediatric); E78.5 Hyperlipidemia, unspecified; Z66 Do not resuscitate; Z51.5 Encounter for palliative care; M17.0 Bilateral primary osteoarthritis of knee; I71.21 Aneurysm of the ascending aorta, without rupture; G47.00 Insomnia, unspecified; E11.9 Type 2 diabetes mellitus without complications; Z96.643 Presence of artificial hip joint, bilateral; F03.90 Unspecified dementia, unspecified severity, without behavioral disturbance, psychotic disturbance, mood disturbance, and anxiety; R62.7 Adult failure to thrive; I08.0 Rheumatic disorders of both mitral and aortic valves; I10 Essential (primary) hypertension; Z86.16 Personal history of COVID-19; Z91.148 Patient's other noncompliance with medication regimen for other reason; Z79.01 Long term (current) use of anticoagulants; Z86.711 Personal history of pulmonary embolism; Z90.89 Acquired absence of other organs; Z79.82 Long term (current) use of aspirin; Z79.84 Long term (current) use of oral hypoglycemic drugs; Z79.899 Other long term (current) drug therapy; Z86.718 Personal history of other venous thrombosis and embolism; Z91.048 Other nonmedicinal substance allergy status
CPT/HCPCS: A4314; J1644; J1940; J2060; J2270; Q9967